=== PATIENT | female | born 1935 | race African-American/Black ===

== ENCOUNTER 2018-05-26 05:52 | Emergency (ER) | payer OTHER ==
[2018-05-26 06:12] VITALS: BP 149/74; PULSE 66; TEMP 98.6; BMI 37.7
[2018-05-26] MEDS ORDERED: CYCLOBENZAPRINE HCL 10 MG TABLET (FP) PO ONE (07:45)
[2018-05-26] MEDS ORDERED: ACETAMINOPHEN 1000 MG/100 ML VIAL (NON FORMULARY) IVPB ONE (07:45)
[2018-05-26] MEDS ORDERED: CYCLOBENZAPRINE HCL 10 MG TABLET (FP) ONE (07:54)
[2018-05-26] MEDS ORDERED: ACETAMINOPHEN INJECTION 100 ML IVPB ONE (07:54)
--- NOTE | 2018-05-26 08:12 | PDOC ---
History of Present Illness - General Chief Complaint: Back Pain Stated Complaint: BACK PAIN Time Seen by Provider: 05/26/18 07:26 History Source: Patient Exam Limitations: No Limitations - History of Present Illness Initial Comments: 05/26/18 08:07 82-year-old female with past medical history of left bundle branch block, spinal stenosis, sciatica, GI bleed, arthritis, congestive heart failure status post pacemaker, hypertension, diabetes, chronic kidney disease, COPD on home oxygen, obesity, angioedema, colon cancer currently in remission, bilateral knee replacements, cholecystectomy, splenectomy presents with acute on chronic back pain. The patient reports that she typically has pain along her lower back which she was recommended surgery. She declined surgery prior. At baseline, she is ambulatory with a cane or walker. States yesterday, reported that the pain was gradually worsening despite no trauma. States that this is the same quality of pain as prior. She reports it as a shooting down pain down the right lateral leg worsened with movement. Reports chronic right lower extremity weakness that is unchanged. Denies any new numbness. Past History - Past Medical History Allergies/Adverse Reactions: Allergies Allergy/AdvReac Type Severity Reaction Status Date / Time No Known Allergies Allergy Verified 05/26/18 06:12 Home Medications: Ambulatory Orders Acetaminophen [Arthritis Pain Relief] 650 mg PO DAILY 05/26/18 Acetaminophen [Tylenol -] 1,000 mg PO Q8H PRN #21 tablet 05/26/18 Amlodipine Besylate 10 mg PO DAILY 05/26/18 Aspirin [ASA -] 81 mg PO DAILY 05/26/18 Atenolol [Tenormin -] 25 mg PO DAILY 05/26/18 Atorvastatin Ca [Lipitor] 40 mg PO HS 05/26/18 Cyclobenzaprine HCl [Flexeril 10 mg] 10 mg PO Q8H PRN #21 tablet 05/26/18 Furosemide 20 mg PO DAILY 05/26/18 Gabapentin 100 mg PO DAILY 05/26/18 Glyburide 5 mg PO DAILY 05/26/18 Lidocaine 5% Patch [Lidoderm Patch -] 1 patch TP DAILY PRN #7 patch 05/26/18 Linaclotide [Linzess] 290 mcg PO DAILY 05/26/18 Montelukast Na [Singulair -] 10 mg PO HS 05/26/18 Multivit-Min/FA/Lycopen/Lutein [Centrum Silver Tablet] 1 each PO DAILY 05/26/18 Omeprazole 20 mg PO DAILY 05/26/18 Sildenafil Citrate [Sildenafil] 20 mg PO DAILY 05/26/18 Ventolin 0.042% (Half-Strength) - 90 mcg IN DAILY 05/26/18 Cardiac Disorders: Yes (complete atrioventricular block/LBBB/pacemaker) COPD: Yes DVT: Yes Diabetes: Yes Disorders: Yes (kidney lession,) Hypercholesterolemia: Yes Other medical history: angioedema, arthralgia,spinal stenosis,carpal tunnel, - Surgical History Abdominal Surgery: Yes (colon ca removed,) Cholecystectomy: Yes (spleen removed.) GI Surgery: Yes (bladder lift,) - Immunization History Immunization Up to Date: (Unknown) - Suicide/Smoking/Psychosocial Hx Smoking History: Never smoked Have you smoked in the past 12 months: No Information on smoking cessation initiated: No Hx Alcohol Use: No Drug/Substance Use Hx: No Review of Systems - Review of Systems Able to Perform ROS?: Yes Comments:: 05/26/18 08:09 GENERAL/CONSTITUTIONAL: [No fever or chills. No weakness. No weight change.] HEAD, EYES, EARS, NOSE AND THROAT: [No change in vision. No ear pain or discharge. No sore throat.] CARDIOVASCULAR: [No chest pain or shortness of breath.] RESPIRATORY: [No cough, wheezing, or hemoptysis.] GASTROINTESTINAL: [No nausea, vomiting, diarrhea or constipation. No rectal bleeding.] GENITOURINARY: [No dysuria, frequency, or change in urination.] MUSCULOSKELETAL: [No joint or muscle swelling or pain. No neck pain. +back pain SKIN AND BREASTS: [No rash or easy bruising.] NEUROLOGIC: [No headache, vertigo, loss of consciousness, or loss of sensation.] PSYCHIATRIC: [No depression or anxiety.] ENDOCRINE: [No increased thirst. No abnormal weight change.] HEMATOLOGIC/LYMPHATIC: [No anemia, easy bleeding, or history of blood clots.] ALLERGIC/IMMUNOLOGIC: [No hives or skin allergy. No latex allergy.] *Physical Exam - Vital Signs Last Vital Signs Temp Pulse Resp BP Pulse Ox 98.6 F 66 16 149/74 100 05/26/18 05:54 05/26/18 05:54 05/26/18 05:54 05/26/18 05:54 05/26/18 05:54 - Physical Exam Comments: 05/26/18 08:10 GENERAL: Awake, alert, and fully oriented, in no acute distress HEAD: No signs of trauma EYES: EOMI, sclera anicteric, conjunctiva clear ENT: Auricles normal inspection, hearing grossly normal, nares patent,Moist mucosa NECK: Normal ROM, supple, LUNGS: Breath sounds equal, clear to auscultation bilaterally. No wheezes, and no crackles HEART: Regular rate and rhythm, normal S1 and S2, no murmurs, rubs or gallops. + left sided chest pacemaker ABDOMEN: Soft, nontender, No guarding, no rebound. No masses BACK: + TTP ~L5-S1, no step offs, reproduces pain. SLR + at 30 degrees RLE. Sensation intact throughout. Chronic mild weakness of dorsiflexion of R 1st great toe. EXTREMITIES: Normal range of motion, no edema. No clubbing or cyanosis. No cords, erythema, or tenderness NEUROLOGICAL: Cranial nerves II through XII grossly intact. Normal speech, SKIN: Warm, Dry, normal turgor, no rashes or lesions noted. Moderate Sedation - Procedure Monitoring Vital Signs: Procedure Monitoring Vital Signs Temperature 98.6 F 05/26/18 05:54 Pulse Rate 66 05/26/18 05:54 Respiratory Rate 16 05/26/18 05:54 Blood Pressure 149/74 05/26/18 05:54 O2 Sat by Pulse Oximetry (%) 100 05/26/18 05:54 Heart Score/ECG Review #1 ECG reviewed & interpreted by me at: 07:10 05/26/18 08:11 NSR 63, left axis deviation, LBBB, QTC 450 msec, scarbossa negative ED Treatment Course - LABORATORY CBC & Chemistry Diagram: 05/26/18 08:07 05/26/18 08:07 Medical Decision Making - Medical Decision Making 05/26/18 08:11 Vital Signs Temp Pulse Resp BP Pulse Ox 98.6 F 66 16 149/74 100 05/26/18 05:54 05/26/18 05:54 05/26/18 05:54 05/26/18 05:54 05/26/18 05:54 I suspect that this is likely acute on chronic sciatica. The patient denies any urinary bowel incontinence. Reports worsening symptoms. Patient reports that she has some her symptoms one year ago which received IV pain medication which improved the pain. Will trial IV Tylenol and Flexeril and reassess. 05/26/18 09:47 CBC, BMP 05/26/18 08:07 05/26/18 08:07 CMP Sodium 139 mmol/L (136-145) 05/26/18 08:07 Potassium 4.6 mmol/L (3.5-5.1) 05/26/18 08:07 Chloride 108 mmol/L (98-107) H 05/26/18 08:07 Carbon Dioxide 25 mmol/L (21-32) 05/26/18 08:07 Anion Gap 6 MMOL/L (8-16) L 05/26/18 08:07 BUN 52 mg/dL (7-18) H 05/26/18 08:07 Creatinine 1.7 mg/dL (0.55-1.3) H 05/26/18 08:07 Creat Clearance w eGFR 28.85 (>60) 05/26/18 08:07 Random Glucose 123 mg/dL (74-106) H 05/26/18 08:07 Calcium 9.2 mg/dL (8.5-10.1) 05/26/18 08:07 Total Bilirubin 0.4 mg/dL (0.2-1) 05/26/18 08:07 AST 18 U/L (15-37) 05/26/18 08:07 ALT 24 U/L (13-61) 05/26/18 08:07 Alkaline Phosphatase 117 U/L (45-117) 05/26/18 08:07 Total Protein 7.2 g/dl (6.4-8.2) 05/26/18 08:07 Albumin 3.5 g/dl (3.4-5.0) 05/26/18 08:07 Pt's back pain improved signficantly with IV tylenol, flexeril and lidoderm patch. The patient is ambulatory without assistance. She would like to go home. She will go home with family. I discussed the physical exam findings, ancillary test results and final diagnoses with the patient. I answered all of the patient's questions. The patient was satisfied with the care received and felt comfortable with the discharge plan and treatment plan. The patient will call their primary care physician within 24 hours to arrange follow-up and will return to the Emergency Department with any new, persistant or worsening symptoms. *DC/Admit/Observation/Transfer Diagnosis at time of Disposition: Sciatica Qualifiers: Laterality: right Qualified Code(s): M54.31 - Sciatica, right side - Discharge Dispostion Disposition: HOME Condition at time of disposition: Improved Decision to Admit order: No - Prescriptions Prescriptions: Acetaminophen [Tylenol -] 1,000 mg PO Q8H PRN #21 tablet PRN Reason: Back Pain Cyclobenzaprine HCl [Flexeril 10 mg] 10 mg PO Q8H PRN #21 tablet PRN Reason: Back Pain Lidocaine 5% Patch [Lidoderm Patch -] 1 patch TP DAILY PRN #7 patch PRN Reason: Back Pain - Referrals Referrals: Cynthia Abbasi MD [Staff Physician] - - Patient Instructions Printed Discharge Instructions: DI for Sciatica Additional Instructions: You may take 1000 mg tylenol every 8 hous as needed for pain. For back spasm, take 10 mg flexeril every 8 hours as needed. You may apply a lidoderm patch on the lower back once a day as needed. Activity as tolerated. Follow up with your doctor. - Post Discharge Activity
[2018-05-26 08:39] LABS: BASO % 1.2 % (0-2.0); HEMATOCRIT 37.7 % (32.4-45.2); LYMPH % 24.2 % (8-40); MCH 30.5 pg (25.7-33.7); MCHC 34.6 g/dl (32.0-36.0); MEAN CELL VOLUME 88.1 fl (80-96); MEAN PLT VOLUME 8.9 fl (7.5-11.1); MONO % 12.6 % (3.8-10.2); PLATELET COUNT 225 K/MM3 (134-434); RBC 4.28 M/mm3 (3.60-5.2); RDW 14.4 % (11.6-15.6); WHITE BLOOD COUNT 8.4 K/mm3 (4.0-10.0)
[2018-05-26 09:06] LABS: ALBUMIN 3.5 g/dl (3.4-5.0); ALK PHOS 117 U/L (45-117); ANION GAP 6 MMOL/L (8-16); BILIRUBIN,TOTAL 0.4 mg/dL (0.2-1); BLOOD UREA NITROGEN 52 mg/dL (7-18); CALCIUM 9.2 mg/dL (8.5-10.1); CHLORIDE 108 mmol/L (98-107); CO2 25 mmol/L (21-32); CREATININE 1.7 mg/dL (0.55-1.3); GLUCOSE,RANDOM 123 mg/dL (74-106); POTASSIUM 4.6 mmol/L (3.5-5.1); SGOT/AST 18 U/L (15-37); SGPT/ALT 24 U/L (13-61); SODIUM 139 mmol/L (136-145); TOT PROT 7.2 g/dl (6.4-8.2)
[2018-05-26] MEDS ORDERED: LIDOCAINE 5% TOPICAL PATCH TP ONE (09:09)
[2018-05-26 09:12] LABS: INR 0.86 (0.83-1.09); PROTHROMBIN TIME (PATIENT) 10.1 SEC (9.7-13.0)
[2018-05-26] MEDS ORDERED: LIDOCAINE 5% TOPICAL PATCH ONE (09:21)
--- NOTE | 2018-05-26 10:27 | EKG ---
Test Reason : Blood Pressure : / mmHG Vent. Rate : 063 BPM Atrial Rate : 063 BPM P-R Int : 182 ms QRS Dur : 138 ms QT Int : 440 ms P-R-T Axes : 062 -40 128 degrees QTc Int : 450 ms NORMAL SINUS RHYTHM LEFT AXIS DEVIATION LEFT BUNDLE BRANCH BLOCK ABNORMAL ECG NO PREVIOUS ECGS AVAILABLE Confirmed by NARCISO JAMES, MATEO ([id number]) on 05/26/2018 10:27:16 AM Referred By: Confirmed By:MATEO STUART MD
[2018-05-26] MEDS ORDERED: LIDOCAINE PATCH REMOVAL MC SCH (22:00)
== END 2018-05-26 10:17 | disposition home or self-care (01) ==
LOC: JER 05:52
PROC: 3E033NZ Introduction of Analgesics, Hypnotics, Sedatives into Peripheral Vein, Percutaneous Approach (ICD-10-PCS; principal; 2018-05-26)
DX: M54.41 Lumbago with sciatica, right side (principal); I12.9 Hypertensive chronic kidney disease with stage 1 through stage 4 chronic kidney disease, or unspecified chronic kidney disease; E11.22 Type 2 diabetes mellitus with diabetic chronic kidney disease; N18.9 Chronic kidney disease, unspecified; Z79.84 Long term (current) use of oral hypoglycemic drugs; J44.9 Chronic obstructive pulmonary disease, unspecified; Z99.81 Dependence on supplemental oxygen; M10.9 Gout, unspecified; I44.7 Left bundle-branch block, unspecified; I44.30 Unspecified atrioventricular block; E66.9 Obesity, unspecified; Z68.37 Body mass index [BMI] 37.0-37.9, adult; Z96.653 Presence of artificial knee joint, bilateral; Z95.0 Presence of cardiac pacemaker; Z86.718 Personal history of other venous thrombosis and embolism
CPT/HCPCS: 36415; 80053; 85025; 85610; 85730; 93005; 93010; 96374; 99283-25; J0131

== ENCOUNTER 2018-12-15 09:25 | Emergency (ER) | payer OTHER ==
[2018-12-15 09:43] VITALS: BMI 34.9
--- NOTE | 2018-12-15 09:56 | PDOC ---
History of Present Illness - General Chief Complaint: Pain Stated Complaint: BACK PAIN Time Seen by Provider: 12/15/18 09:42 History Source: Patient Exam Limitations: No Limitations Past History - Travel Traveled outside of the country in the last 30 days: No Close contact w/someone who was outside of country & ill: No - Past Medical History Allergies/Adverse Reactions: Allergies Allergy/AdvReac Type Severity Reaction Status Date / Time No Known Allergies Allergy Verified 12/15/18 09:43 Home Medications: Ambulatory Orders Acetaminophen [Arthritis Pain Relief] 650 mg PO DAILY 05/26/18 Acetaminophen [Tylenol -] 1,000 mg PO Q8H PRN #21 tablet 05/26/18 Amlodipine Besylate 10 mg PO DAILY 05/26/18 Aspirin [ASA -] 81 mg PO DAILY 05/26/18 Atenolol [Tenormin -] 25 mg PO DAILY 05/26/18 Atorvastatin Ca [Lipitor] 40 mg PO HS 05/26/18 Cyclobenzaprine HCl [Flexeril 10 mg] 10 mg PO Q8H PRN #21 tablet 05/26/18 Furosemide 20 mg PO DAILY 05/26/18 Gabapentin 100 mg PO DAILY 05/26/18 Glyburide 10 mg PO AM 05/26/18 Linaclotide [Linzess] 290 mcg PO DAILY 05/26/18 Montelukast Na [Singulair -] 10 mg PO HS 05/26/18 Multivit-Min/FA/Lycopen/Lutein [Centrum Silver Tablet] 1 each PO DAILY 05/26/18 Omeprazole 20 mg PO DAILY 05/26/18 Sildenafil Citrate [Sildenafil] 20 mg PO DAILY 05/26/18 Ventolin 0.042% (Half-Strength) - 90 mcg IN DAILY 05/26/18 Acetaminophen [Tylenol -] 500 mg PO Q4H #30 tablet 12/15/18 Cyclobenzaprine HCl 5 mg PO HS #10 tablet 12/15/18 Glyburide 5 mg PO HS 12/15/18 predniSONE [Deltasone -] 20 mg PO DAILY #5 tablet 12/15/18 Cardiac Disorders: Yes (complete atrioventricular block/LBBB/pacemaker) COPD: Yes DVT: Yes Diabetes: Yes Disorders: Yes (kidney lession,) Hypercholesterolemia: Yes - Surgical History Abdominal Surgery: Yes (colon ca removed,) Cholecystectomy: Yes (spleen removed.) GI Surgery: Yes (bladder lift,) - Immunization History Immunization Up to Date: (Unknown) - Suicide/Smoking/Psychosocial Hx Smoking History: Never smoked Have you smoked in the past 12 months: No Information on smoking cessation initiated: No Hx Alcohol Use: No Drug/Substance Use Hx: No Review of Systems - Review of Systems Able to Perform ROS?: Yes Comments:: 12/15/18 16:55 CONSTITUTIONAL: Absent: fever, chills, diaphoresis, generalized weakness, malaise, loss of appetite GASTROINTESTINAL: Absent: abdominal pain, abdominal distension, nausea, vomiting, diarrhea, constipation, melena, hematochezia GENITOURINARY: Absent: dysuria, frequency, urgency, hesitancy, hematuria, flank pain, genital pain MUSCULOSKELETAL: Present: upper R back pain Absent: arthralgia, joint swelling SKIN: Absent: rash, itching, pallor NEUROLOGIC: Absent: headache, focal weakness or paresthesias, dizziness, unsteady gait, seizure, mental status changes, bladder or bowel incontinence PSYCHIATRIC: Absent: anxiety, depression, suicidal or homicidal ideation, hallucinations. Is the patient limited Urdu proficient: No *Physical Exam - Vital Signs Last Vital Signs Temp Pulse Resp BP Pulse Ox 97.4 F L 91 H 18 148/76 99 12/15/18 09:40 12/15/18 09:40 12/15/18 09:40 12/15/18 09:40 12/15/18 09:40 - Physical Exam Comments: 12/15/18 09:56 GENERAL: Well developed, well nourished. Awake and alert. No acute distress. HEENT: Normocephalic, atraumatic. PERRLA, EOMI. No conjunctival pallor. Sclera are non- icteric. Moist mucous membranes. Oropharynx is clear. NECK: Supple. Full ROM. No JVD. Carotid pulses 2+ and symmetric, without bruits. No thyromegaly. No lymphadenopathy. CARDIOVASCULAR: Regular rate and rhythm. No murmurs, rubs, or gallops. Distal pulses are 2+ and symmetric. PULMONARY: No evidence of respiratory distress. Lungs clear to auscultation bilaterally. No wheezing, rales or rhonchi. ABDOMINAL: Soft. Non-tender. Non-distended. No rebound or guarding. No organomegaly. Normoactive bowel sounds. MUSCULOSKELETAL TTP of the R trapzius/rhomboid. No midline tenderness. Pt at baseline strength in the upper extremites. Normal range of motion at all joints. No bony deformities or tenderness. No CVA tenderness. EXTREMITIES: No cyanosis. No clubbing. No edema. No calf tenderness. SKIN: Warm and dry. Normal capillary refill. No rashes. No jaundice. NEUROLOGICAL: Alert, awake, appropriate. Cranial nerves 2-12 intact. No deficits to light touch and temperature in face, upper extremities and lower extremities. No motor deficits in the in face, upper extremities and lower extremities. Normoreflexic in the upper and lower extremities. Normal speech. Toes are down- going bilaterally. Gait is normal without ataxia. PSYCHIATRIC: Cooperative. Good eye contact. Appropriate mood and affect. Medical Decision Making - Medical Decision Making 12/15/18 16:05 The patient is an 83-year-old female with past medical history of complete AV block with pacemaker, COPD, left nephrectomy, HLD, hypertension, hx of colon CA in remission (no chemo needed), presents to the ER today with right upper back pain. Patient states her pain started 2 days ago. She notes that the pain got worse when her right shoulder pain also got worse. She has history of a complete rotator cuff tear as well as the biceps tendon tear in the right arm. She states that she had been seen in urgent care for her shoulder pain and was diagnosed with a muscle spasm. She was given Flexeril which helped her symptoms. She is currently out of that medication. Denies fevers, chills, numbness and tingling to the upper extremities, lightheadedness, dizziness, saddle anesthesia and bladder bowel incontinence. A/P: Upper back pain On exam pt with point tenderness to the R upper trapezius/rhomboid. Pain with movement of R arm X-ray of upper back and lumbar spine without evidence of metastises or compression fracture Denies trauma Pt is neurologically intact with no focal findings Tylenol, prendisone and lidocaine patch given with relief of symptoms DC home with supportive therapy and ortho follow up I discussed the physical exam findings, ancillary test results and final diagnoses with the patient. I answered all of the patient's questions. The patient was satisfied with the care received and felt comfortable with the discharge plan and treatment plan. The Patient agrees to follow up with the primary care physician/specialist within 24-72 hours. Return precautions were given. *DC/Admit/Observation/Transfer Diagnosis at time of Disposition: Back pain Qualifiers: Back pain location: thoracic back pain Chronicity: acute Back pain laterality: right Qualified Code(s): M54.6 - Pain in thoracic spine - Discharge Dispostion Disposition: HOME Condition at time of disposition: Stable Decision to Admit order: No - Prescriptions Prescriptions: Acetaminophen [Tylenol -] 500 mg PO Q4H #30 tablet Cyclobenzaprine HCl 5 mg PO HS #10 tablet predniSONE [Deltasone -] 20 mg PO DAILY #5 tablet - Referrals Referrals: Hubert Perez [Primary Care Provider] - - Patient Instructions Printed Discharge Instructions: DI for Thoracic Back Pain Additional Instructions: You were evaluated for your back pain today Your x-rays did not show any broken bones and your urine was negative for infection You most likely have a muscle spasm Take the Flexeril at night before bed. Do not drink or drive after taking this medication as it may make you drowsy Take the Tylenol and Prednisone as directed Follow up with your primary care doctor this week Return to the ER for worsening pain, numbness or tingling in your groin, loss of bladder/bowel function or if you have any changes in your symptoms - Post Discharge Activity Forms/Work/School Notes: Back to Work
[2018-12-15] MEDS ORDERED: ACETAMINOPHEN 325 MG TABLET (FP) PO ONE (10:20)
[2018-12-15] MEDS ORDERED: CYCLOBENZAPRINE HCL 10 MG TABLET (FP) PO ONE (10:20)
[2018-12-15] MEDS ORDERED: predniSONE 20 MG TABLET (UD) PO ONE (10:21)
[2018-12-15] MEDS ORDERED: CYCLOBENZAPRINE HCL 10 MG TABLET (FP) ONE (11:04)
[2018-12-15] MEDS ORDERED: predniSONE 20 MG TABLET (UD) ONE (11:04)
[2018-12-15] MEDS ORDERED: ACETAMINOPHEN 325 MG TABLET (FP) ONE (11:04)
[2018-12-15 11:28] LABS: EPI CELLS 7.4 /HPF (0-5/HPF); HYALINE CASTS 3 /lpf (0-8); URINE APPEARANCE CLEAR; URINE BILIRUBIN NEGATIVE (NEGATIVE); URINE COLOR YELLOW; URINE GLUCOSE (UA) NEGATIVE (NEGATIVE); URINE KETONE NEGATIVE (NEGATIVE); URINE LEUK ESTERASE TRACE (NEGATIVE); URINE NITRITE NEGATIVE (NEGATIVE); URINE PROTEIN 3+ (NEGATIVE); URINE RBC 1 /hpf (0-4); URINE UROBILINOGEN 0.2 mg/dL (0.2-1.0); URINE WBC 7 /hpf (0-5)
[2018-12-15 13:52] VITALS: BP 159/81; PULSE 61; TEMP 97.5
== END 2018-12-15 13:53 | disposition home or self-care (01) ==
LOC: JER 09:25
DX: M54.6 Pain in thoracic spine (principal); E11.9 Type 2 diabetes mellitus without complications; Z79.84 Long term (current) use of oral hypoglycemic drugs; E78.00 Pure hypercholesterolemia, unspecified; J44.9 Chronic obstructive pulmonary disease, unspecified; I44.7 Left bundle-branch block, unspecified; I44.2 Atrioventricular block, complete; Z86.718 Personal history of other venous thrombosis and embolism; Z85.038 Personal history of other malignant neoplasm of large intestine; Z90.49 Acquired absence of other specified parts of digestive tract; Z90.81 Acquired absence of spleen; Z95.0 Presence of cardiac pacemaker
CPT/HCPCS: 72070-TC-FY; 72100-TC-FY; 81003; 87086; 99283-25

== ENCOUNTER 2020-10-17 09:33 | Inpatient (IN) | payer OTHER ==
[2020-10-17 11:57] LABS: BASO % 1.3 % (0-2.0); EOS % 2.9 % (0-4.5); HEMATOCRIT 36.4 % (32.4-45.2); LYMPH % 30.6 % (8-40); MCH 28.7 pg (25.7-33.7); MCHC 33.1 g/dl (32.0-36.0); MEAN CELL VOLUME 86.7 fl (80-96); MEAN PLT VOLUME 8.4 fl (7.5-11.1); MONO % 9.5 % (3.8-10.2); NEUT % 55.7 % (42.8-82.8); PLATELET COUNT 249 10^3/uL (134-434); RDW 15.4 % (11.6-15.6); WHITE BLOOD COUNT 5.6 K/mm3 (4.0-10.0)
[2020-10-17 12:30] LABS: INR 0.79 (0.83-1.09); PROTHROMBIN TIME (PATIENT) 9.6 SEC (9.7-13.0)
[2020-10-17 12:32] LABS: ACTIVATED PTT 20.8 SECONDS (25.2-36.5)
[2020-10-17 12:40] LABS: CHLORIDE 110 mmol/L (98-107); SODIUM 137 mmol/L (136-145)
[2020-10-17 12:42] LABS: CALCIUM 8.9 mg/dL (8.5-10.1)
[2020-10-17 12:43] LABS: ALBUMIN 3.6 g/dl (3.4-5.0); BLOOD UREA NITROGEN 63.1 mg/dL (7-18); CO2 18 mmol/L (21-32); GLUCOSE,RANDOM 64 mg/dL (74-106)
[2020-10-17 12:46] LABS: CREATININE 2.2 mg/dL (0.55-1.3); SGOT/AST 19 U/L (15-37); SGPT/ALT 34 U/L (13-61)
[2020-10-17 12:48] LABS: BILIRUBIN,TOTAL 0.3 mg/dL (0.2-1); TOT PROT 7.3 g/dl (6.4-8.2)
[2020-10-17 12:49] LABS: ALK PHOS 98 U/L (45-117)
[2020-10-17 12:52] LABS: ANION GAP 8 MMOL/L (8-16)
[2020-10-17] MEDS ORDERED: CALCIUM GLUCONATE 10% - 1,000 MG/10 ML VIAL IVPB ONE (13:29)
[2020-10-17] MEDS ORDERED: DEXTROSE 50%-WATER - 25 GM/50 ML VIAL IVPUSH ONE (13:29)
[2020-10-17] MEDS ORDERED: INSULIN REGULAR HUMAN 100 UNITS/ML *VIAL IVPUSH ONE (13:30)
[2020-10-17] MEDS ORDERED: CALCIUM GLUCONATE 10% - 1,000 MG/10 ML VIAL ONE (13:38)
[2020-10-17] MEDS ORDERED: DEXTROSE 50%-WATER - 25 GM/50 ML VIAL ONE (13:38)
[2020-10-17] MEDS ORDERED: INSULIN REGULAR HUMAN 100 UNITS/ML *VIAL ONE (13:40)
[2020-10-17] MEDS ORDERED: FUROSEMIDE 20 MG TABLET (FP) PO SCH (15:45)
[2020-10-17] MEDS ORDERED: SODIUM ZIRCONIUM CYCLOSILICATE (LOKELMA) 5 GM PACKET PO ONE (17:25)
[2020-10-17] MEDS ORDERED: FUROSEMIDE 40 MG TABLET (FP) ONE (17:31)
[2020-10-17] MEDS ORDERED: SODIUM ZIRCONIUM CYCLOSILICATE (LOKELMA) 5 GM PACKET ONE (17:31)
[2020-10-17] MEDS ORDERED: FAMOTIDINE 10 MG TABLET ONE (17:31)
[2020-10-17] MEDS ORDERED: CARVEDILOL 12.5 MG TABLET (FP) ONE (17:32)
[2020-10-17] MEDS: CARVEDILOL 25 MG TABLET (FP) PO SCH ×2 (17:40→22:22)
[2020-10-17] MEDS: FAMOTIDINE 10 MG TABLET PO SCH (17:40)
[2020-10-17] MEDS: INSULIN SLIDING SCALE (NOVOLOG) 1 VIAL SQ SCH ×2 (17:41→22:22)
[2020-10-17 18:10] LABS: CALCIUM 9.2 mg/dL (8.5-10.1)
[2020-10-17 18:11] LABS: BLOOD UREA NITROGEN 60.6 mg/dL (7-18); MAGNESIUM 2.4 mg/dL (1.8-2.4)
[2020-10-17 18:14] LABS: CREATININE 2.1 mg/dL (0.55-1.3); PHOSPHOROUS 4.4 mg/dL (2.5-4.9)
[2020-10-17] MEDS: HEPARIN NA (PORCINE) 5,000 UNITS/ML 1ML VIAL SQ SCH (22:22)
[2020-10-17 23:01] VITALS: BMI 33.3
[2020-10-18] MEDS: INSULIN SLIDING SCALE (NOVOLOG) 1 VIAL SQ SCH ×4 (07:04→21:48)
[2020-10-18] MEDS: HEPARIN NA (PORCINE) 5,000 UNITS/ML 1ML VIAL SQ SCH ×3 (07:05→21:46)
[2020-10-18 09:22] LABS: INR 0.86 (0.83-1.09); PROTHROMBIN TIME (PATIENT) 10.6 SEC (9.7-13.0)
[2020-10-18 09:23] LABS: BASO % 1.3 % (0-2.0); EOS % 4.1 % (0-4.5); HEMATOCRIT 36.5 % (32.4-45.2); HEMOGLOBIN 11.9 GM/dL (10.7-15.3); LYMPH % 29.7 % (8-40); MCH 28.4 pg (25.7-33.7); MCHC 32.6 g/dl (32.0-36.0); MEAN CELL VOLUME 87.1 fl (80-96); MEAN PLT VOLUME 9.2 fl (7.5-11.1); MONO % 11.2 % (3.8-10.2); NEUT % 53.7 % (42.8-82.8); PLATELET COUNT 239 10^3/uL (134-434); RBC 4.19 M/mm3 (3.60-5.2); RDW 15.4 % (11.6-15.6); WHITE BLOOD COUNT 5.4 K/mm3 (4.0-10.0)
[2020-10-18 09:25] LABS: ACTIVATED PTT 31.5 SECONDS (25.2-36.5)
[2020-10-18 09:45] LABS: BLOOD UREA NITROGEN 56.6 mg/dL (7-18); CALCIUM 9.5 mg/dL (8.5-10.1); MAGNESIUM 2.3 mg/dL (1.8-2.4)
[2020-10-18] MEDS: FAMOTIDINE 10 MG TABLET PO SCH (09:45)
[2020-10-18] MEDS: CARVEDILOL 25 MG TABLET (FP) PO SCH ×2 (09:45→21:46)
[2020-10-18 09:46] LABS: CREATININE 2.1 mg/dL (0.55-1.3)
[2020-10-18 09:48] LABS: PHOSPHOROUS 4.3 mg/dL (2.5-4.9)
[2020-10-18 10:29] LABS: ANISOCYTOSIS 0; HELMET CELLS 0; HOWELL-JOLLY BODIES 0; MACROCYTOSIS 0; OVALOCYTE 0; PLATELET ESTIMATE NORMAL; ROULEAU 0; SICKELED CELLS 0; TARGET CELLS 0; TEAR DROP CELLS 0; TOXIC GRANULATION 0
[2020-10-18 20:48] LABS: EPI CELLS 35 /uL (0-25.1); HYALINE CASTS 1 /uL (0-3.1); URINE APPEARANCE CLEAR; URINE BACTERIA 1148 /uL (0-1359); URINE BILIRUBIN NEGATIVE (NEGATIVE); URINE COLOR YELLOW; URINE GLUCOSE (UA) NEGATIVE (NEGATIVE); URINE KETONE NEGATIVE (NEGATIVE); URINE LEUK ESTERASE 1+ (NEGATIVE); URINE NITRITE NEGATIVE (NEGATIVE); URINE PROTEIN 3+ (NEGATIVE); URINE RBC 5 /uL (0-23.9); URINE UROBILINOGEN 0.2 mg/dL (0.2-1.0); URINE WBC 61 /uL (0-25.8)
[2020-10-19] MEDS: INSULIN SLIDING SCALE (NOVOLOG) 1 VIAL SQ SCH ×3 (07:21→17:16)
[2020-10-19] MEDS: HEPARIN NA (PORCINE) 5,000 UNITS/ML 1ML VIAL SQ SCH ×2 (07:32→13:16)
[2020-10-19 07:55] LABS: BASO % 0.4 % (0-2.0); EOS % 3.7 % (0-4.5); HEMATOCRIT 35.2 % (32.4-45.2); HEMOGLOBIN 11.8 GM/dL (10.7-15.3); LYMPH % 33.2 % (8-40); MCH 28.9 pg (25.7-33.7); MCHC 33.4 g/dl (32.0-36.0); MEAN CELL VOLUME 86.6 fl (80-96); MEAN PLT VOLUME 8.9 fl (7.5-11.1); MONO % 10.5 % (3.8-10.2); NEUT % 52.2 % (42.8-82.8); PLATELET COUNT 223 10^3/uL (134-434); RBC 4.07 M/mm3 (3.60-5.2); RDW 15.2 % (11.6-15.6); WHITE BLOOD COUNT 5.9 K/mm3 (4.0-10.0)
[2020-10-19 08:18] LABS: ALBUMIN 3.5 g/dl (3.4-5.0); CALCIUM 9.1 mg/dL (8.5-10.1); MAGNESIUM 2.4 mg/dL (1.8-2.4)
[2020-10-19 08:22] LABS: CREATININE 2.2 mg/dL (0.55-1.3)
[2020-10-19 08:23] LABS: BILIRUBIN,TOTAL 0.6 mg/dL (0.2-1); PHOSPHOROUS 4.8 mg/dL (2.5-4.9); TOT PROT 6.8 g/dl (6.4-8.2)
[2020-10-19 09:47] VITALS: PULSE 62
[2020-10-19] MEDS: FAMOTIDINE 10 MG TABLET PO SCH (09:57)
[2020-10-19] MEDS: CARVEDILOL 25 MG TABLET (FP) PO SCH (09:57)
[2020-10-19] MEDS ORDERED: SODIUM ZIRCONIUM CYCLOSILICATE (LOKELMA) 5 GM PACKET PO ONE (10:07)
[2020-10-19] MEDS ORDERED: SODIUM CHLORIDE 1,000 ML IV SCH (10:15)
[2020-10-19] MEDS ORDERED: SODIUM CHLORIDE 0.45% 1,000 ML IV SCH (12:00)
[2020-10-19 14:51] VITALS: BP 153/73; TEMP 97.5
== END 2020-10-19 20:00 | disposition home or self-care (01) | DRG 641 ==
LOC: JER 09:33 → JERBED 14:22 → J4W 21:56
PROVIDERS: ATTEND Internal Medicine
DX: E87.5 Hyperkalemia (principal); N17.9 Acute kidney failure, unspecified; I13.0 Hypertensive heart and chronic kidney disease with heart failure and stage 1 through stage 4 chronic kidney disease, or unspecified chronic kidney disease; J44.9 Chronic obstructive pulmonary disease, unspecified; I44.7 Left bundle-branch block, unspecified; E11.22 Type 2 diabetes mellitus with diabetic chronic kidney disease; N18.9 Chronic kidney disease, unspecified; I50.9 Heart failure, unspecified; E78.5 Hyperlipidemia, unspecified; F45.8 Other somatoform disorders; Z79.84 Long term (current) use of oral hypoglycemic drugs
CPT/HCPCS: 36415; 71045-TC-FY; 80048; 80053; 81003; 82550; 82570; 82962; 83735; 84100; 84300; 84484; 85025; 85610; 85730; 86769; 93005; 93010; 97116-GP; 97161-GP; 99285-25; C9803; J1644; U0003; U0005

== ENCOUNTER 2021-01-28 22:35 | Inpatient (IN) | payer OTHER ==
[2021-01-28 23:04] VITALS: TEMP 97.7; BMI 36.3
[2021-01-28] MEDS ORDERED: ACETAMINOPHEN 1000 MG/100 ML VIAL IVPB ONE (23:29)
[2021-01-28] MEDS ORDERED: METOCLOPRAMIDE HCL INJECTION 10 MG/2 ML VIAL IVPUSH ONE (23:29)
[2021-01-29] MEDS ORDERED: METOCLOPRAMIDE HCL INJECTION 10 MG/2 ML VIAL ONE (00:23)
[2021-01-29 00:56] LABS: BASO % 0.8 % (0-2.0); EOS % 2.1 % (0-4.5); HEMATOCRIT 37.3 % (32.4-45.2); HEMOGLOBIN 12.6 GM/dL (10.7-15.3); MCH 29.2 pg (25.7-33.7); MCHC 33.7 g/dl (32.0-36.0); MEAN CELL VOLUME 86.5 fl (80-96); MEAN PLT VOLUME 8.9 fl (7.5-11.1); MONO % 12.5 % (3.8-10.2); NEUT % 52.6 % (42.8-82.8); PLATELET COUNT 230 10^3/uL (134-434); RBC 4.31 M/mm3 (3.60-5.2); RDW 14.1 % (11.6-15.6); WHITE BLOOD COUNT 6.3 K/mm3 (4.0-10.0)
[2021-01-29 01:12] LABS: BLOOD UREA NITROGEN 38.2 mg/dL (7-18)
[2021-01-29 01:15] LABS: CREATININE 2.2 mg/dL (0.55-1.3)
[2021-01-29 01:17] LABS: BILIRUBIN,TOTAL 0.5 mg/dL (0.2-1)
[2021-01-29 04:10] LABS: EPI CELLS 13 /uL (0-25.1); HYALINE CASTS 0 /uL (0-3.1); PH,URINE 6.5 (5.0-8.0); URINE APPEARANCE CLEAR; URINE BACTERIA 51 /uL (0-1359); URINE BILIRUBIN NEGATIVE (NEGATIVE); URINE COLOR YELLOW; URINE GLUCOSE (UA) NEGATIVE (NEGATIVE); URINE KETONE NEGATIVE (NEGATIVE); URINE LEUK ESTERASE NEGATIVE (NEGATIVE); URINE NITRITE NEGATIVE (NEGATIVE); URINE PROTEIN 3+ (NEGATIVE); URINE RBC 5 /uL (0-23.9); URINE UROBILINOGEN 0.2 mg/dL (0.2-1.0); URINE WBC 13 /uL (0-25.8)
[2021-01-29] MEDS ORDERED: GABAPENTIN 100 MG CAPSULE PO SCH (06:00)
[2021-01-29] MEDS ORDERED: INSULIN SLIDING SCALE (NOVOLOG) 1 VIAL SQ SCH (07:00)
[2021-01-29 07:44] VITALS: BP 140/89; PULSE 79
[2021-01-29] MEDS ORDERED: GABAPENTIN 100 MG CAPSULE ONE (08:01)
[2021-01-29] MEDS ORDERED: amLODIPine BESYLATE 5 MG TABLET (FP) PO SCH (10:00)
[2021-01-29] MEDS ORDERED: CARVEDILOL 25 MG TABLET (FP) PO SCH (10:00)
[2021-01-29] MEDS ORDERED: HEPARIN NA (PORCINE) 5,000 UNITS/ML 1ML VIAL SQ SCH (10:00)
[2021-01-29] MEDS ORDERED: ASPIRIN COATED 81 MG TABLET.EC PO SCH (10:00)
[2021-01-29] MEDS ORDERED: ATORVASTATIN CA 40 MG TABLET (FP) PO SCH (22:00)
== END 2021-01-29 10:30 | disposition left against medical advice (07) | DRG 69 ==
LOC: JER 22:35 → JERBED 23:55 → OBSVTOIN 01-29 05:16
PROVIDERS: ADMIT Internal Medicine; ATTEND Nurse Practitioner Acute Care
DX: G45.9 Transient cerebral ischemic attack, unspecified (principal); G45.3 Amaurosis fugax; N17.9 Acute kidney failure, unspecified; E78.5 Hyperlipidemia, unspecified; Z79.84 Long term (current) use of oral hypoglycemic drugs; Z95.0 Presence of cardiac pacemaker; J44.9 Chronic obstructive pulmonary disease, unspecified; E11.42 Type 2 diabetes mellitus with diabetic polyneuropathy; E66.9 Obesity, unspecified; E11.22 Type 2 diabetes mellitus with diabetic chronic kidney disease; I12.9 Hypertensive chronic kidney disease with stage 1 through stage 4 chronic kidney disease, or unspecified chronic kidney disease; N18.9 Chronic kidney disease, unspecified; Z68.36 Body mass index [BMI] 36.0-36.9, adult; I44.7 Left bundle-branch block, unspecified; Z53.29 Procedure and treatment not carried out because of patient's decision for other reasons
CPT/HCPCS: 36415; 70450-TC; 71045-TC-FY; 80053; 80061; 81003; 83036; 84443; 85025; 87086; 93005; 93010; 93880-TC; 93971-TC; 99285-25; C9803; G0378; J0131; U0003; U0005

== ENCOUNTER 2021-03-21 12:26 | Observation (INO) | payer OTHER ==
[2021-03-21 14:39] LABS: BASO % 1.4 % (0-2.0); HEMATOCRIT 33.7 % (32.4-45.2); HEMOGLOBIN 11.4 GM/dL (10.7-15.3); LYMPH % 42.8 % (8-40); MCH 28.9 pg (25.7-33.7); MCHC 33.9 g/dl (32.0-36.0); MEAN CELL VOLUME 85.3 fl (80-96); MEAN PLT VOLUME 9.3 fl (7.5-11.1); MONO % 9.6 % (3.8-10.2); NEUT % 44.2 % (42.8-82.8); PLATELET COUNT 203 10^3/uL (134-434); RBC 3.95 M/mm3 (3.60-5.2); RDW 14.5 % (11.6-15.6); WHITE BLOOD COUNT 4.4 K/mm3 (4.0-10.0)
[2021-03-21 14:56] LABS: BLOOD UREA NITROGEN 45.1 mg/dL (7-18)
[2021-03-21 14:57] LABS: ALBUMIN 3.1 g/dl (3.4-5.0)
[2021-03-21 14:59] LABS: CREATININE 2.2 mg/dL (0.55-1.3)
[2021-03-21 15:01] LABS: BILIRUBIN,TOTAL 0.4 mg/dL (0.2-1); TOT PROT 6.4 g/dl (6.4-8.2)
[2021-03-21] MEDS ORDERED: PHENYTOIN NA EXTENDED 100 MG CAPSULE (FP) ONE (18:39)
[2021-03-21] MEDS ORDERED: amLODIPine BESYLATE 5 MG TABLET (FP) ONE (18:39)
[2021-03-21] MEDS ORDERED: HEPARIN NA (PORCINE) 5,000 UNITS/ML 1ML VIAL ONE (18:40)
[2021-03-21] MEDS: amLODIPine BESYLATE 10 MG TABLET (FP) PO SCH (18:50)
[2021-03-21] MEDS: HEPARIN NA (PORCINE) 5,000 UNITS/ML 1ML VIAL SQ SCH (18:50)
[2021-03-21] MEDS: GABAPENTIN 100 MG CAPSULE PO SCH ×2 (18:50→22:48)
[2021-03-21] MEDS: CARVEDILOL 25 MG TABLET (FP) PO SCH (22:15)
[2021-03-21] MEDS: ATORVASTATIN CA 40 MG TABLET (FP) PO SCH (22:15)
[2021-03-21] MEDS: INSULIN SLIDING SCALE (NOVOLOG) 1 VIAL SQ SCH (22:19)
[2021-03-22 02:27] VITALS: BMI 31.4
[2021-03-22] MEDS: HEPARIN NA (PORCINE) 5,000 UNITS/ML 1ML VIAL SQ SCH ×3 (02:31→17:11)
[2021-03-22] MEDS: GABAPENTIN 100 MG CAPSULE PO SCH ×4 (06:28→23:13)
[2021-03-22] MEDS: INSULIN SLIDING SCALE (NOVOLOG) 1 VIAL SQ SCH ×4 (06:37→21:28)
[2021-03-22 07:06] LABS: BASO % 1.4 % (0-2.0); HEMATOCRIT 34.5 % (32.4-45.2); HEMOGLOBIN 11.5 GM/dL (10.7-15.3); LYMPH % 41.8 % (8-40); MCH 28.9 pg (25.7-33.7); MCHC 33.4 g/dl (32.0-36.0); MEAN CELL VOLUME 86.5 fl (80-96); MEAN PLT VOLUME 9.1 fl (7.5-11.1); MONO % 13.1 % (3.8-10.2); NEUT % 39.7 % (42.8-82.8); PLATELET COUNT 194 10^3/uL (134-434); RBC 3.99 M/mm3 (3.60-5.2); RDW 14.4 % (11.6-15.6); WHITE BLOOD COUNT 4.8 K/mm3 (4.0-10.0)
[2021-03-22 07:32] LABS: ALBUMIN 2.8 g/dl (3.4-5.0); BLOOD UREA NITROGEN 42.5 mg/dL (7-18); CALCIUM 8.7 mg/dL (8.5-10.1); MAGNESIUM 2.2 mg/dL (1.8-2.4)
[2021-03-22 07:35] LABS: CREATININE 2.4 mg/dL (0.55-1.3); PHOSPHOROUS 4.1 mg/dL (2.5-4.9)
[2021-03-22 07:37] LABS: BILIRUBIN,TOTAL 0.6 mg/dL (0.2-1); TOT PROT 6.1 g/dl (6.4-8.2)
[2021-03-22] MEDS ORDERED: INSULIN (NOVOLOG) ASPART 100 UNITS/ML 10ML VIAL ONE (09:16)
[2021-03-22] MEDS: amLODIPine BESYLATE 10 MG TABLET (FP) PO SCH (09:54)
[2021-03-22] MEDS: CARVEDILOL 25 MG TABLET (FP) PO SCH ×2 (09:54→21:28)
[2021-03-22] MEDS: ASPIRIN COATED 81 MG TABLET.EC PO SCH (09:55)
[2021-03-22 18:04] LABS: EPI CELLS >36 /uL (0-25.1); HYALINE CASTS 1 /uL (0-3.1); PH,URINE 5.5 (5.0-8.0); URINE APPEARANCE CLOUDY; URINE BACTERIA 2071 /uL (0-1359); URINE BILIRUBIN NEGATIVE (NEGATIVE); URINE COLOR YELLOW; URINE GLUCOSE (UA) NEGATIVE (NEGATIVE); URINE KETONE NEGATIVE (NEGATIVE); URINE LEUK ESTERASE TRACE (NEGATIVE); URINE NITRITE NEGATIVE (NEGATIVE); URINE PROTEIN 4+ (NEGATIVE); URINE RBC 3 /uL (0-23.9); URINE UROBILINOGEN 0.2 mg/dL (0.2-1.0); URINE WBC 56 /uL (0-25.8)
[2021-03-22] MEDS: ATORVASTATIN CA 40 MG TABLET (FP) PO SCH (21:28)
[2021-03-23] MEDS: HEPARIN NA (PORCINE) 5,000 UNITS/ML 1ML VIAL SQ SCH ×3 (01:45→19:35)
[2021-03-23 05:14] VITALS: TEMP 98.1
[2021-03-23] MEDS: GABAPENTIN 100 MG CAPSULE PO SCH ×3 (05:49→17:37)
[2021-03-23] MEDS: INSULIN SLIDING SCALE (NOVOLOG) 1 VIAL SQ SCH ×3 (06:05→15:49)
[2021-03-23 07:04] LABS: BASO % 1.3 % (0-2.0); EOS % 3.6 % (0-4.5); HEMATOCRIT 33.2 % (32.4-45.2); HEMOGLOBIN 11.2 GM/dL (10.7-15.3); LYMPH % 45.2 % (8-40); MCH 28.8 pg (25.7-33.7); MCHC 33.7 g/dl (32.0-36.0); MEAN CELL VOLUME 85.6 fl (80-96); MEAN PLT VOLUME 9.2 fl (7.5-11.1); NEUT % 36.9 % (42.8-82.8); PLATELET COUNT 182 10^3/uL (134-434); RBC 3.88 M/mm3 (3.60-5.2); RDW 14.4 % (11.6-15.6); WHITE BLOOD COUNT 4.6 K/mm3 (4.0-10.0)
[2021-03-23 07:19] LABS: ALBUMIN 2.7 g/dl (3.4-5.0); BLOOD UREA NITROGEN 46.6 mg/dL (7-18); MAGNESIUM 2.3 mg/dL (1.8-2.4)
[2021-03-23 07:22] LABS: CREATININE 2.2 mg/dL (0.55-1.3); PHOSPHOROUS 4.4 mg/dL (2.5-4.9)
[2021-03-23 07:24] LABS: BILIRUBIN,TOTAL 0.4 mg/dL (0.2-1); TOT PROT 5.6 g/dl (6.4-8.2)
[2021-03-23] MEDS ORDERED: SODIUM CHLORIDE 1,000 ML IV SCH (08:30)
[2021-03-23 08:58] VITALS: BP 140/74; PULSE 61
[2021-03-23] MEDS: ASPIRIN COATED 81 MG TABLET.EC PO SCH (11:08)
[2021-03-23] MEDS: amLODIPine BESYLATE 10 MG TABLET (FP) PO SCH (11:08)
[2021-03-23] MEDS: CARVEDILOL 25 MG TABLET (FP) PO SCH (11:10)
[2021-03-23] MEDS ORDERED: REGADENOSON 0.4 MG/5 ML PRE-FILLED SYRINGE IVPUSH ONE ×2 (14:01→14:45)
== END 2021-03-23 20:31 | disposition home or self-care (01) ==
LOC: JER 12:26 → JERBED 15:55 → UNDOADMOB 15:55 → OBSVTOIN 17:34 → INTOOBSV 17:34 → JERBED 18:39 → J4W 20:25 → JERBED 20:25
PROVIDERS: ADMIT Internal Medicine; ATTEND Internal Medicine
PROC: 3E033GC Introduction of Other Therapeutic Substance into Peripheral Vein, Percutaneous Approach (ICD-10-PCS; principal; 2021-03-21)
PROC: 3E0337Z Introduction of Electrolytic and Water Balance Substance into Peripheral Vein, Percutaneous Approach (ICD-10-PCS; 2021-03-21)
DX: I13.10 Hypertensive heart and chronic kidney disease without heart failure, with stage 1 through stage 4 chronic kidney disease, or unspecified chronic kidney disease (principal); Z95.0 Presence of cardiac pacemaker; I24.9 Acute ischemic heart disease, unspecified; N17.9 Acute kidney failure, unspecified; I44.7 Left bundle-branch block, unspecified; E66.9 Obesity, unspecified; Z68.31 Body mass index [BMI] 31.0-31.9, adult; Z85.048 Personal history of other malignant neoplasm of rectum, rectosigmoid junction, and anus; I49.5 Sick sinus syndrome; E11.22 Type 2 diabetes mellitus with diabetic chronic kidney disease; N18.9 Chronic kidney disease, unspecified; R07.9 Chest pain, unspecified; R79.89 Other specified abnormal findings of blood chemistry
CPT/HCPCS: 36415; 71045-TC-FY; 78452-TC; 80053; 81003; 82550; 82962; 83735; 84100; 84443; 84484; 85025; 93005; 93010; 93017; 93306-TC; 96361; 96374; 99285-25; A9502; C9803; G0378; J1644; J2785; U0003; U0005

== ENCOUNTER 2021-09-25 14:43 | Inpatient (IN) | payer OTHER ==
[2021-09-25] MEDS ORDERED: ACETAMINOPHEN 1000 MG/100 ML BAG IVPB ONE (15:28)
[2021-09-25] MEDS ORDERED: ACETAMINOPHEN INJECTION 100 ML IVPB ONE (15:31)
[2021-09-25 16:11] LABS: BASO % 2.2 % (0-2.0); EOS % 1.9 % (0-4.5); HEMOGLOBIN 11.5 GM/dL (10.7-15.3); LYMPH % 32.5 % (8-40); MCH 29.4 pg (25.7-33.7); MCHC 33.9 g/dl (32.0-36.0); MEAN CELL VOLUME 86.9 fl (80-96); MEAN PLT VOLUME 8.5 fl (7.5-11.1); MONO % 9.5 % (3.8-10.2); NEUT % 53.9 % (42.8-82.8); PLATELET COUNT 217 10^3/uL (134-434); RBC 3.91 M/mm3 (3.60-5.2); RDW 15.1 % (11.6-15.6); WHITE BLOOD COUNT 4.4 K/mm3 (4.0-10.0)
[2021-09-25 16:37] LABS: EPI CELLS 12 /uL (0-25.1); HYALINE CASTS 0 /uL (0-3.1); URINE APPEARANCE CLEAR; URINE BACTERIA 224 /uL (0-1359); URINE BILIRUBIN NEGATIVE (NEGATIVE); URINE COLOR YELLOW; URINE GLUCOSE (UA) NEGATIVE (NEGATIVE); URINE KETONE NEGATIVE (NEGATIVE); URINE LEUK ESTERASE NEGATIVE (NEGATIVE); URINE NITRITE NEGATIVE (NEGATIVE); URINE PROTEIN 3+ (NEGATIVE); URINE RBC 2 /uL (0-23.9); URINE UROBILINOGEN 0.2 mg/dL (0.2-1.0); URINE WBC 11 /uL (0-25.8)
[2021-09-25 16:45] LABS: CHLORIDE 108 mmol/L (98-107); SODIUM 139 mmol/L (136-145)
[2021-09-25 16:49] LABS: ALBUMIN 3.6 g/dl (3.4-5.0); ANION GAP 8 MMOL/L (8-16); BLOOD UREA NITROGEN 56.2 mg/dL (7-18); CALCIUM 9.3 mg/dL (8.5-10.1); CO2 23 mmol/L (21-32); GLUCOSE,RANDOM 137 mg/dL (74-106); LIPASE 236 U/L (73-393)
[2021-09-25 16:50] LABS: MAGNESIUM 2.2 mg/dL (1.8-2.4)
[2021-09-25 16:52] LABS: CREATININE 2.7 mg/dL (0.55-1.3); SGOT/AST 18 U/L (15-37); SGPT/ALT 28 U/L (13-61)
[2021-09-25 16:54] LABS: BILIRUBIN,TOTAL 0.6 mg/dL (0.2-1); TOT PROT 7.1 g/dl (6.4-8.2)
[2021-09-25 16:55] LABS: ALK PHOS 87 U/L (45-117)
[2021-09-25] MEDS ORDERED: SODIUM CHLORIDE 0.9% 500 ML INFUS.BAG IV ONE (17:11)
[2021-09-25 17:36] LABS: INR 0.94 (0.83-1.09); PROTHROMBIN TIME (PATIENT) 10.8 SEC (9.7-13.0)
[2021-09-25 17:39] LABS: ACTIVATED PTT 31.4 SECONDS (25.2-36.5)
[2021-09-25 18:44] LABS: CALCIUM 9.5 mg/dL (8.5-10.1)
[2021-09-25 18:46] LABS: BLOOD UREA NITROGEN 57.9 mg/dL (7-18)
[2021-09-25 18:48] LABS: CREATININE 2.7 mg/dL (0.55-1.3)
[2021-09-25] MEDS ORDERED: CARVEDILOL 25 MG TABLET (FP) PO SCH (22:00)
[2021-09-25] MEDS ORDERED: CARVEDILOL 25 MG TABLET (FP) ONE (23:04)
[2021-09-25] MEDS ORDERED: HEPARIN NA (PORCINE) 5,000 UNITS/ML 1ML VIAL ONE (23:04)
[2021-09-25] MEDS: CARVEDILOL 25 MG TABLET (FP) PO SCH (23:09)
[2021-09-25] MEDS: HEPARIN NA (PORCINE) 5,000 UNITS/ML 1ML VIAL SQ SCH (23:09)
[2021-09-26 01:22] VITALS: BMI 29.2
[2021-09-26] MEDS ORDERED: FLU VACC QS2021-22(6MOS UP)/PF 60 MCG/0.5 ML SYRINGE IM ONE (01:22)
[2021-09-26] MEDS: INSULIN SLIDING SCALE (NOVOLOG) 1 VIAL SQ SCH ×4 (06:07→22:19)
[2021-09-26] MEDS: GABAPENTIN 100 MG CAPSULE PO SCH ×3 (06:41→22:19)
[2021-09-26] MEDS ORDERED: FUROSEMIDE 20 MG TABLET (FP) PO SCH (10:00)
[2021-09-26] MEDS: CARVEDILOL 25 MG TABLET (FP) PO SCH ×2 (10:00→22:18)
[2021-09-26] MEDS: HEPARIN NA (PORCINE) 5,000 UNITS/ML 1ML VIAL SQ SCH ×2 (10:00→22:19)
[2021-09-26] MEDS: ASPIRIN COATED 81 MG TABLET.EC PO SCH (10:00)
[2021-09-26] MEDS ORDERED: PNEUMOC 20-VAL CONJ-DIP CRM/PF 0.5 ML SYRINGE IM ONE (10:00)
[2021-09-26] MEDS: amLODIPine BESYLATE 10 MG TABLET (FP) PO SCH (10:00)
[2021-09-26 11:00] LABS: BASO % 2.1 % (0-2.0); EOS % 2.1 % (0-4.5); HEMATOCRIT 35.1 % (32.4-45.2); HEMOGLOBIN 11.6 GM/dL (10.7-15.3); MCHC 33.2 g/dl (32.0-36.0); MEAN CELL VOLUME 87.4 fl (80-96); MONO % 8.9 % (3.8-10.2); NEUT % 53.9 % (42.8-82.8); PLATELET COUNT 213 10^3/uL (134-434); RBC 4.01 M/mm3 (3.60-5.2); WHITE BLOOD COUNT 3.5 K/mm3 (4.0-10.0)
[2021-09-26 11:37] LABS: CHLORIDE 109 mmol/L (98-107); SODIUM 140 mmol/L (136-145)
[2021-09-26 11:44] LABS: ANION GAP 6 MMOL/L (8-16); BLOOD UREA NITROGEN 54.1 mg/dL (7-18); CALCIUM 9.6 mg/dL (8.5-10.1); CO2 24 mmol/L (21-32); GLUCOSE,RANDOM 214 mg/dL (74-106)
[2021-09-26 11:45] LABS: ALBUMIN 3.5 g/dl (3.4-5.0); MAGNESIUM 2.4 mg/dL (1.8-2.4)
[2021-09-26 11:47] LABS: CREATININE 2.6 mg/dL (0.55-1.3); PHOSPHOROUS 3.9 mg/dL (2.5-4.9); SGOT/AST 17 U/L (15-37); SGPT/ALT 26 U/L (13-61)
[2021-09-26 11:49] LABS: BILIRUBIN,TOTAL 0.4 mg/dL (0.2-1); TOT PROT 6.6 g/dl (6.4-8.2)
[2021-09-26 11:50] LABS: ALK PHOS 86 U/L (45-117)
[2021-09-26] MEDS: ATORVASTATIN CA 40 MG TABLET (FP) PO SCH (22:18)
[2021-09-26] MEDS: POLYETHYLENE GLYCOL (HEALTHYLAX) 3350 17 GM PACKET PO SCH (22:18)
[2021-09-26] MEDS: MONTELUKAST NA 10 MG TABLET PO SCH (22:19)
[2021-09-27] MEDS: INSULIN SLIDING SCALE (NOVOLOG) 1 VIAL SQ SCH ×4 (06:42→21:21)
[2021-09-27] MEDS: GABAPENTIN 100 MG CAPSULE PO SCH ×3 (06:42→21:22)
[2021-09-27 08:16] LABS: BASO % 1.3 % (0-2.0); EOS % 2.5 % (0-4.5); HEMATOCRIT 29.8 % (32.4-45.2); LYMPH % 28.6 % (8-40); MCH 29.5 pg (25.7-33.7); MCHC 33.7 g/dl (32.0-36.0); MEAN CELL VOLUME 87.7 fl (80-96); MEAN PLT VOLUME 8.4 fl (7.5-11.1); MONO % 12.6 % (3.8-10.2); PLATELET COUNT 185 10^3/uL (134-434); RBC 3.39 M/mm3 (3.60-5.2)
[2021-09-27 08:34] LABS: CALCIUM 8.8 mg/dL (8.5-10.1)
[2021-09-27 08:35] LABS: BLOOD UREA NITROGEN 60.4 mg/dL (7-18); MAGNESIUM 2.2 mg/dL (1.8-2.4)
[2021-09-27 08:37] LABS: CREATININE 2.8 mg/dL (0.55-1.3); PHOSPHOROUS 4.4 mg/dL (2.5-4.9)
[2021-09-27] MEDS: POLYETHYLENE GLYCOL (HEALTHYLAX) 3350 17 GM PACKET PO SCH ×2 (10:53→21:21)
[2021-09-27] MEDS: CARVEDILOL 25 MG TABLET (FP) PO SCH ×2 (10:53→21:21)
[2021-09-27] MEDS: HEPARIN NA (PORCINE) 5,000 UNITS/ML 1ML VIAL SQ SCH ×2 (10:53→21:21)
[2021-09-27] MEDS: ASPIRIN COATED 81 MG TABLET.EC PO SCH (10:53)
[2021-09-27] MEDS: amLODIPine BESYLATE 10 MG TABLET (FP) PO SCH (10:53)
[2021-09-27] MEDS: MONTELUKAST NA 10 MG TABLET PO SCH (21:21)
[2021-09-27] MEDS: ATORVASTATIN CA 40 MG TABLET (FP) PO SCH (21:22)
[2021-09-28] MEDS: GABAPENTIN 100 MG CAPSULE PO SCH ×2 (05:03→15:14)
[2021-09-28] MEDS: INSULIN SLIDING SCALE (NOVOLOG) 1 VIAL SQ SCH ×3 (06:02→17:53)
[2021-09-28 10:53] LABS: BASO % 0.3 % (0-2.0); EOS % 2.6 % (0-4.5); HEMATOCRIT 35.1 % (32.4-45.2); HEMOGLOBIN 11.5 GM/dL (10.7-15.3); LYMPH % 33.2 % (8-40); MCH 28.9 pg (25.7-33.7); MCHC 32.7 g/dl (32.0-36.0); MEAN CELL VOLUME 88.4 fl (80-96); MEAN PLT VOLUME 9.1 fl (7.5-11.1); MONO % 9.7 % (3.8-10.2); NEUT % 54.2 % (42.8-82.8); PLATELET COUNT 209 10^3/uL (134-434); RBC 3.97 M/mm3 (3.60-5.2); RDW 15.1 % (11.6-15.6); WHITE BLOOD COUNT 3.9 K/mm3 (4.0-10.0)
[2021-09-28 11:16] LABS: CALCIUM 9.1 mg/dL (8.5-10.1)
[2021-09-28 11:18] LABS: BLOOD UREA NITROGEN 70.3 mg/dL (7-18); MAGNESIUM 2.4 mg/dL (1.8-2.4)
[2021-09-28 11:21] LABS: CREATININE 2.8 mg/dL (0.55-1.3); PHOSPHOROUS 4.6 mg/dL (2.5-4.9)
[2021-09-28] MEDS: ASPIRIN COATED 81 MG TABLET.EC PO SCH (11:33)
[2021-09-28] MEDS: CARVEDILOL 25 MG TABLET (FP) PO SCH (11:33)
[2021-09-28] MEDS: HEPARIN NA (PORCINE) 5,000 UNITS/ML 1ML VIAL SQ SCH (11:33)
[2021-09-28] MEDS: amLODIPine BESYLATE 10 MG TABLET (FP) PO SCH (11:33)
[2021-09-28] MEDS: POLYETHYLENE GLYCOL (HEALTHYLAX) 3350 17 GM PACKET PO SCH (11:34)
[2021-09-28 18:16] VITALS: BP 150/74; PULSE 64; TEMP 98.3
== END 2021-09-28 18:48 | disposition home or self-care (01) | DRG 392 ==
LOC: JER 14:43 → JERBED 19:21 → OBSVTOIN 22:03 → J5S 23:42
PROVIDERS: ADMIT Internal Medicine; ATTEND Internal Medicine
DX: K59.00 Constipation, unspecified (principal); N17.9 Acute kidney failure, unspecified; I13.0 Hypertensive heart and chronic kidney disease with heart failure and stage 1 through stage 4 chronic kidney disease, or unspecified chronic kidney disease; N18.4 Chronic kidney disease, stage 4 (severe); I50.32 Chronic diastolic (congestive) heart failure; J44.9 Chronic obstructive pulmonary disease, unspecified; N28.1 Cyst of kidney, acquired; E11.42 Type 2 diabetes mellitus with diabetic polyneuropathy; E78.5 Hyperlipidemia, unspecified; N28.89 Other specified disorders of kidney and ureter; E11.22 Type 2 diabetes mellitus with diabetic chronic kidney disease; I44.7 Left bundle-branch block, unspecified; M48.00 Spinal stenosis, site unspecified; K57.90 Diverticulosis of intestine, part unspecified, without perforation or abscess without bleeding; E66.3 Overweight; Z86.718 Personal history of other venous thrombosis and embolism; Z85.038 Personal history of other malignant neoplasm of large intestine; Z90.5 Acquired absence of kidney; Z95.0 Presence of cardiac pacemaker; Z96.653 Presence of artificial knee joint, bilateral; Z68.29 Body mass index [BMI] 29.0-29.9, adult
CPT/HCPCS: 36415; 74176-TC; 80048; 80053; 81003; 82962; 83690; 83735; 84100; 84484; 85025; 85610; 85730; 86850; 86900; 86901; 87086; 90686; 93005; 93010; 97116-GP; 97162-GP; 99285-25; C9803-CS; G0008; G0378; J1644; U0003; U0005

== ENCOUNTER 2021-10-29 15:04 | Emergency (ER) | payer OTHER ==
[2021-10-29 15:14] VITALS: RESP 18; BMI 35.4
[2021-10-29] MEDS ORDERED: FAMOTIDINE 20 MG TABLET ONE (16:30)
[2021-10-29] MEDS: FAMOTIDINE 20 MG TABLET PO ONE ×2 (16:31→16:58)
[2021-10-29 17:28] LABS: HEMATOCRIT 34.4 % (32.4-45.2); MCH 30.3 pg (25.7-33.7); MCHC 34.9 g/dl (32.0-36.0); MEAN CELL VOLUME 86.8 fl (80-96); PLATELET COUNT 188 10^3/uL (134-434); RBC 3.97 M/mm3 (3.60-5.2); RDW 14.7 % (11.6-15.6); WHITE BLOOD COUNT 5.6 K/mm3 (4.0-10.0)
[2021-10-29] MEDS ORDERED: ACETAMINOPHEN 1000 MG/100 ML BAG IVPB ONE (17:34)
[2021-10-29 17:44] LABS: INR 1.02 (0.83-1.09); PROTHROMBIN TIME (PATIENT) 11.7 SEC (9.7-13.0)
[2021-10-29 17:48] LABS: CHLORIDE 105 mmol/L (98-107); SODIUM 137 mmol/L (136-145)
[2021-10-29 17:50] LABS: ALBUMIN 3.8 g/dl (3.4-5.0); ANION GAP 8 MMOL/L (8-16); BLOOD UREA NITROGEN 47.2 mg/dL (7-18); CALCIUM 9.2 mg/dL (8.5-10.1); CO2 24 mmol/L (21-32); GLUCOSE,RANDOM 110 mg/dL (74-106)
[2021-10-29 17:51] LABS: MAGNESIUM 1.9 mg/dL (1.8-2.4)
[2021-10-29 17:53] LABS: CREATININE 2.8 mg/dL (0.55-1.3); PHOSPHOROUS 3.9 mg/dL (2.5-4.9); SGOT/AST 26 U/L (15-37); SGPT/ALT 33 U/L (13-61)
[2021-10-29] MEDS ORDERED: ACETAMINOPHEN INJECTION 100 ML IVPB ONE (17:53)
[2021-10-29 17:54] LABS: ANISOCYTOSIS 0; HELMET CELLS 0; HOWELL-JOLLY BODIES 0; MACROCYTOSIS 0; OVALOCYTE 0; ROULEAU 0; SICKELED CELLS 0; TARGET CELLS 0; TEAR DROP CELLS 0; TOXIC GRANULATION 0
[2021-10-29 17:55] LABS: BILIRUBIN,TOTAL 0.5 mg/dL (0.2-1); TOT PROT 7.2 g/dl (6.4-8.2)
[2021-10-29 17:56] LABS: ALK PHOS 88 U/L (45-117)
[2021-10-29 18:46] LABS: EPI CELLS 21 /uL (0-25.1); HYALINE CASTS 1 /uL (0-3.1); PH,URINE 5.5 (5.0-8.0); URINE APPEARANCE CLEAR; URINE BACTERIA 172 /uL (0-1359); URINE BILIRUBIN NEGATIVE (NEGATIVE); URINE COLOR YELLOW; URINE GLUCOSE (UA) NEGATIVE (NEGATIVE); URINE KETONE NEGATIVE (NEGATIVE); URINE LEUK ESTERASE NEGATIVE (NEGATIVE); URINE NITRITE NEGATIVE (NEGATIVE); URINE PROTEIN 3+ (NEGATIVE); URINE RBC 6 /uL (0-23.9); URINE UROBILINOGEN 0.2 mg/dL (0.2-1.0); URINE WBC 24 /uL (0-25.8)
[2021-10-29 19:09] LABS: CALCIUM 8.4 mg/dL (8.5-10.1)
[2021-10-29 19:10] LABS: BLOOD UREA NITROGEN 44.5 mg/dL (7-18)
[2021-10-29 19:13] LABS: CREATININE 2.7 mg/dL (0.55-1.3)
[2021-10-29] MEDS ORDERED: BEBTELOVIMAB (EUA) 175 MG/2 ML VIAL IVPUSH ONE (19:35)
[2021-10-29 21:46] VITALS: BP 147/70; PULSE 63; TEMP 98.7
== END 2021-10-29 23:00 | disposition home or self-care (01) ==
LOC: JER 15:04
PROC: 3E0333Z Introduction of Anti-inflammatory into Peripheral Vein, Percutaneous Approach (ICD-10-PCS; principal; 2021-10-29)
PROC: 3E03329 Introduction of Other Anti-infective into Peripheral Vein, Percutaneous Approach (ICD-10-PCS; 2021-10-29)
DX: U07.1 COVID-19 (principal)
CPT/HCPCS: 0241U-QW; 36415; 71045-TC-FY; 80048; 80053; 81003; 82962; 83735; 84100; 84484; 85025; 85610; 87086; 93005; 93010; 99285-25; M0222; Q0222

== ENCOUNTER 2022-01-24 10:35 | Emergency (ER) | payer OTHER ==
[2022-01-24 10:43] VITALS: BP 142/73; PULSE 70; RESP 18; TEMP 97.9; BMI 25.8
[2022-01-24] MEDS ORDERED: ACETAMINOPHEN 325 MG TABLET (FP) PO ONE (11:07)
[2022-01-24] MEDS ORDERED: CYCLOBENZAPRINE HCL 5 MG TABLET PO ONE (11:07)
[2022-01-24] MEDS ORDERED: LIDOCAINE 5% TOPICAL PATCH TP ONE (11:07)
[2022-01-24] MEDS ORDERED: CYCLOBENZAPRINE HCL 10 MG TABLET (FP) ONE (11:14)
[2022-01-24] MEDS ORDERED: ACETAMINOPHEN 325 MG TABLET (FP) ONE (11:14)
[2022-01-24] MEDS ORDERED: LIDOCAINE 5% TOPICAL PATCH ONE (11:15)
== END 2022-01-24 13:04 | disposition home or self-care (01) ==
LOC: JER 10:35
DX: M54.50 Low back pain, unspecified (principal)
CPT/HCPCS: 99283-25

== ENCOUNTER 2022-03-06 10:38 | Inpatient (IN) | payer OTHER ==
[2022-03-06 11:04] VITALS: BMI 25.0
[2022-03-06] MEDS ORDERED: FAMOTIDINE 20 MG/50 ML IVPB 20 MG/50 ML MG IVPB ONE ×2 (11:13→13:35)
[2022-03-06] MEDS ORDERED: MAG HYDROX/AL HYDROX/SIMETH -MYLANTA- ORAL SUSPENSION PO ONE (11:13)
[2022-03-06] MEDS ORDERED: ACETAMINOPHEN 1000 MG/100 ML BAG IVPB ONE (11:13)
[2022-03-06 12:31] LABS: BASO % 1.7 % (0-2.0); EOS % 2.9 % (0-4.5); HEMOGLOBIN 11.4 GM/dL (10.7-15.3); LYMPH % 34.2 % (8-40); MCH 29.1 pg (25.7-33.7); MCHC 32.7 g/dl (32.0-36.0); MEAN CELL VOLUME 88.9 fl (80-96); MEAN PLT VOLUME 8.3 fl (7.5-11.1); MONO % 9.6 % (3.8-10.2); NEUT % 51.6 % (42.8-82.8); PLATELET COUNT 225 10^3/uL (134-434); RBC 3.93 M/mm3 (3.60-5.2); RDW 14.4 % (11.6-15.6); WHITE BLOOD COUNT 4.1 K/mm3 (4.0-10.0)
[2022-03-06 13:04] LABS: CHLORIDE 108 mmol/L (98-107); SODIUM 140 mmol/L (136-145)
[2022-03-06 13:06] LABS: CALCIUM 9.4 mg/dL (8.5-10.1)
[2022-03-06 13:07] LABS: ALBUMIN 3.5 g/dl (3.4-5.0); BLOOD UREA NITROGEN 78.5 mg/dL (7-18); CO2 22 mmol/L (21-32); GLUCOSE,RANDOM 141 mg/dL (74-106); LIPASE 249 U/L (73-393)
[2022-03-06 13:09] LABS: CREATININE 3.5 mg/dL (0.55-1.3)
[2022-03-06 13:10] LABS: SGPT/ALT 25 U/L (13-61)
[2022-03-06 13:11] LABS: BILIRUBIN,TOTAL 0.2 mg/dL (0.2-1); SGOT/AST 17 U/L (15-37); TOT PROT 7.2 g/dl (6.4-8.2)
[2022-03-06 13:12] LABS: ALK PHOS 91 U/L (45-117)
[2022-03-06 13:24] LABS: ANION GAP 10 MMOL/L (8-16)
[2022-03-06] MEDS ORDERED: ACETAMINOPHEN INJECTION 100 ML IVPB ONE (13:34)
[2022-03-06] MEDS ORDERED: MAG HYDROX/AL HYDROX/SIMETH 30 ML UNIT-DOSE CUP ONE (13:35)
[2022-03-06] MEDS ORDERED: ASPIRIN 81 MG CHEWABLE TABLETS PO ONE (14:12)
[2022-03-06] MEDS ORDERED: ASPIRIN 81 MG CHEWABLE TABLETS ONE (14:26)
[2022-03-06] MEDS: INSULIN SLIDING SCALE (NOVOLOG) 1 VIAL SQ SCH ×2 (21:34→23:30)
[2022-03-06] MEDS: SODIUM CHLORIDE 1,000 ML IV SCH (21:38)
[2022-03-06] MEDS ORDERED: CARVEDILOL 25 MG TABLET (FP) ONE (22:55)
[2022-03-06] MEDS ORDERED: GABAPENTIN 100 MG CAPSULE ONE (22:55)
[2022-03-06] MEDS ORDERED: DOCUSATE SODIUM 100 MG CAPSULE (FP) PO ONE (22:55)
[2022-03-06] MEDS ORDERED: HEPARIN NA (PORCINE) 5,000 UNITS/ML 1ML VIAL ONE (22:56)
[2022-03-06] MEDS ORDERED: ATORVASTATIN CA 40 MG TABLET (FP) ONE (23:00)
[2022-03-06] MEDS: DOCUSATE SODIUM 100 MG CAPSULE (FP) PO SCH (23:05)
[2022-03-06] MEDS: CARVEDILOL 25 MG TABLET (FP) PO SCH (23:05)
[2022-03-06] MEDS: POLYETHYLENE GLYCOL (HEALTHYLAX) 3350 17 GM PACKET PO SCH (23:05)
[2022-03-06] MEDS: HEPARIN NA (PORCINE) 5,000 UNITS/ML 1ML VIAL SQ SCH (23:06)
[2022-03-06] MEDS: ATORVASTATIN CA 40 MG TABLET (FP) PO SCH (23:06)
[2022-03-06] MEDS: GABAPENTIN 100 MG CAPSULE PO SCH (23:06)
[2022-03-07] MEDS ORDERED: MELATONIN 5 MG TABLETS PO ONE (01:08)
[2022-03-07] MEDS ORDERED: MELATONIN 5 MG TABLETS ONE (01:20)
[2022-03-07] MEDS ORDERED: GABAPENTIN 100 MG CAPSULE ONE ×2 (06:14→13:49)
[2022-03-07] MEDS ORDERED: HEPARIN NA (PORCINE) 5,000 UNITS/ML 1ML VIAL ONE ×2 (06:14→13:49)
[2022-03-07] MEDS: GABAPENTIN 100 MG CAPSULE PO SCH ×4 (06:20→22:21)
[2022-03-07] MEDS: HEPARIN NA (PORCINE) 5,000 UNITS/ML 1ML VIAL SQ SCH ×3 (06:20→21:51)
[2022-03-07 07:10] LABS: EPI CELLS 31 /uL (0-25.1); HYALINE CASTS 1 /uL (0-3.1); PH,URINE 5.5 (5.0-8.0); URINE APPEARANCE CLEAR; URINE BACTERIA 255 /uL (0-1359); URINE BILIRUBIN NEGATIVE (NEGATIVE); URINE COLOR YELLOW; URINE GLUCOSE (UA) NEGATIVE (NEGATIVE); URINE KETONE NEGATIVE (NEGATIVE); URINE LEUK ESTERASE NEGATIVE (NEGATIVE); URINE NITRITE NEGATIVE (NEGATIVE); URINE PROTEIN 3+ (NEGATIVE); URINE RBC 12 /uL (0-23.9); URINE UROBILINOGEN 0.2 mg/dL (0.2-1.0); URINE WBC 43 /uL (0-25.8)
[2022-03-07 08:44] LABS: BASO % 0.3 % (0-2.0); EOS % 3.9 % (0-4.5); HEMATOCRIT 29.8 % (32.4-45.2); HEMOGLOBIN 9.7 GM/dL (10.7-15.3); LYMPH % 36.7 % (8-40); MCH 29.2 pg (25.7-33.7); MCHC 32.6 g/dl (32.0-36.0); MEAN CELL VOLUME 89.7 fl (80-96); MEAN PLT VOLUME 9.1 fl (7.5-11.1); MONO % 12.8 % (3.8-10.2); NEUT % 46.3 % (42.8-82.8); PLATELET COUNT 187 10^3/uL (134-434); RBC 3.32 M/mm3 (3.60-5.2); RDW 14.7 % (11.6-15.6); WHITE BLOOD COUNT 4.2 K/mm3 (4.0-10.0)
[2022-03-07 09:18] LABS: CALCIUM 8.6 mg/dL (8.5-10.1); MAGNESIUM 2.1 mg/dL (1.8-2.4)
[2022-03-07 09:19] LABS: BLOOD UREA NITROGEN 75.8 mg/dL (7-18)
[2022-03-07] MEDS: INSULIN SLIDING SCALE (NOVOLOG) 1 VIAL SQ SCH ×4 (09:20→22:16)
[2022-03-07 09:21] LABS: PHOSPHOROUS 4.7 mg/dL (2.5-4.9)
[2022-03-07 09:22] LABS: CREATININE 3.2 mg/dL (0.55-1.3)
[2022-03-07] MEDS ORDERED: CARVEDILOL 25 MG TABLET (FP) ONE (09:26)
[2022-03-07] MEDS ORDERED: FUROSEMIDE 20 MG TABLET (FP) ONE (09:26)
[2022-03-07] MEDS ORDERED: DOCUSATE SODIUM 100 MG CAPSULE (FP) PO ONE (09:26)
[2022-03-07] MEDS ORDERED: amLODIPine BESYLATE 10 MG TABLET (FP) ONE (09:26)
[2022-03-07] MEDS: amLODIPine BESYLATE 10 MG TABLET (FP) PO SCH (09:38)
[2022-03-07] MEDS: CARVEDILOL 25 MG TABLET (FP) PO SCH ×3 (09:38→22:22)
[2022-03-07] MEDS: FUROSEMIDE 20 MG TABLET (FP) PO SCH (09:38)
[2022-03-07] MEDS: DOCUSATE SODIUM 100 MG CAPSULE (FP) PO SCH ×3 (09:38→22:21)
[2022-03-07] MEDS ORDERED: amLODIPine BESYLATE 10 MG TABLET (FP) PO SCH (10:00)
[2022-03-07] MEDS: POLYETHYLENE GLYCOL (HEALTHYLAX) 3350 17 GM PACKET PO SCH ×2 (13:13→22:21)
[2022-03-07] MEDS: ATORVASTATIN CA 40 MG TABLET (FP) PO SCH ×2 (21:51→22:22)
[2022-03-07] MEDS: SODIUM CHLORIDE 1,000 ML IV SCH (23:42)
[2022-03-08] MEDS: HEPARIN NA (PORCINE) 5,000 UNITS/ML 1ML VIAL SQ SCH ×3 (05:41→21:21)
[2022-03-08] MEDS: GABAPENTIN 100 MG CAPSULE PO SCH ×3 (05:41→21:22)
[2022-03-08] MEDS: INSULIN SLIDING SCALE (NOVOLOG) 1 VIAL SQ SCH ×4 (06:05→21:22)
[2022-03-08] MEDS: CARVEDILOL 25 MG TABLET (FP) PO SCH ×2 (09:29→21:21)
[2022-03-08] MEDS: DOCUSATE SODIUM 100 MG CAPSULE (FP) PO SCH ×2 (09:29→21:21)
[2022-03-08] MEDS: amLODIPine BESYLATE 10 MG TABLET (FP) PO SCH (09:30)
[2022-03-08] MEDS: POLYETHYLENE GLYCOL (HEALTHYLAX) 3350 17 GM PACKET PO SCH ×2 (09:30→21:21)
[2022-03-08 12:09] LABS: ALBUMIN 3.3 g/dl (3.4-5.0); BILIRUBIN,TOTAL 0.2 mg/dL (0.2-1); BLOOD UREA NITROGEN 75.9 mg/dL (7-18); CALCIUM 9.2 mg/dL (8.5-10.1); CREATININE 3.4 mg/dL (0.55-1.3); TOT PROT 6.6 g/dl (6.4-8.2)
[2022-03-08] MEDS: SODIUM ZIRCONIUM CYCLOSILICATE (LOKELMA) 5 GM PACKET PO SCH (14:31)
[2022-03-08] MEDS ORDERED: SODIUM CHLORIDE 0.45% 1,000 ML IV SCH (15:15)
[2022-03-08 18:25] VITALS: RESP 18
[2022-03-08] MEDS: ATORVASTATIN CA 40 MG TABLET (FP) PO SCH (21:22)
[2022-03-09] MEDS: INSULIN SLIDING SCALE (NOVOLOG) 1 VIAL SQ SCH ×4 (06:51→22:04)
[2022-03-09] MEDS: HEPARIN NA (PORCINE) 5,000 UNITS/ML 1ML VIAL SQ SCH ×3 (06:51→21:51)
[2022-03-09] MEDS: GABAPENTIN 100 MG CAPSULE PO SCH ×3 (06:51→21:51)
[2022-03-09] MEDS: DOCUSATE SODIUM 100 MG CAPSULE (FP) PO SCH ×2 (09:23→21:51)
[2022-03-09] MEDS: amLODIPine BESYLATE 10 MG TABLET (FP) PO SCH (09:24)
[2022-03-09] MEDS: CARVEDILOL 25 MG TABLET (FP) PO SCH ×2 (09:24→21:51)
[2022-03-09] MEDS: POLYETHYLENE GLYCOL (HEALTHYLAX) 3350 17 GM PACKET PO SCH ×2 (09:27→21:50)
[2022-03-09] MEDS ORDERED: hydrALAZINE HCL 20 MG/ML VIAL IVPUSH ONE ×2 (09:45)
[2022-03-09 11:02] LABS: BASO % 1.4 % (0-2.0); EOS % 2.7 % (0-4.5); HEMATOCRIT 32.2 % (32.4-45.2); HEMOGLOBIN 10.9 GM/dL (10.7-15.3); LYMPH % 36.3 % (8-40); MCHC 33.9 g/dl (32.0-36.0); MEAN CELL VOLUME 88.4 fl (80-96); MEAN PLT VOLUME 8.6 fl (7.5-11.1); NEUT % 47.6 % (42.8-82.8); PLATELET COUNT 222 10^3/uL (134-434); RBC 3.65 M/mm3 (3.60-5.2); RDW 14.6 % (11.6-15.6); WHITE BLOOD COUNT 4.2 K/mm3 (4.0-10.0)
[2022-03-09] MEDS: SODIUM ZIRCONIUM CYCLOSILICATE (LOKELMA) 5 GM PACKET PO SCH (11:09)
[2022-03-09 11:20] LABS: ALBUMIN 3.5 g/dl (3.4-5.0); BLOOD UREA NITROGEN 78.5 mg/dL (7-18); CALCIUM 9.3 mg/dL (8.5-10.1)
[2022-03-09 11:23] LABS: CREATININE 3.8 mg/dL (0.55-1.3)
[2022-03-09 11:25] LABS: BILIRUBIN,TOTAL 0.4 mg/dL (0.2-1); TOT PROT 6.9 g/dl (6.4-8.2)
[2022-03-09] MEDS: ATORVASTATIN CA 40 MG TABLET (FP) PO SCH (21:51)
[2022-03-10] MEDS: HEPARIN NA (PORCINE) 5,000 UNITS/ML 1ML VIAL SQ SCH (05:08)
[2022-03-10] MEDS: GABAPENTIN 100 MG CAPSULE PO SCH (05:08)
[2022-03-10] MEDS: INSULIN SLIDING SCALE (NOVOLOG) 1 VIAL SQ SCH ×2 (06:40→13:07)
[2022-03-10] MEDS: POLYETHYLENE GLYCOL (HEALTHYLAX) 3350 17 GM PACKET PO SCH (10:04)
[2022-03-10] MEDS: CARVEDILOL 25 MG TABLET (FP) PO SCH (10:04)
[2022-03-10] MEDS: DOCUSATE SODIUM 100 MG CAPSULE (FP) PO SCH (10:04)
[2022-03-10] MEDS: SODIUM ZIRCONIUM CYCLOSILICATE (LOKELMA) 5 GM PACKET PO SCH (10:04)
[2022-03-10] MEDS: FUROSEMIDE 20 MG TABLET (FP) PO SCH (10:04)
[2022-03-10] MEDS: amLODIPine BESYLATE 10 MG TABLET (FP) PO SCH (10:05)
[2022-03-10 11:27] LABS: CALCIUM 9.1 mg/dL (8.5-10.1)
[2022-03-10 11:28] LABS: BLOOD UREA NITROGEN 84.8 mg/dL (7-18)
[2022-03-10 11:31] LABS: CREATININE 3.8 mg/dL (0.55-1.3)
[2022-03-10 16:19] VITALS: TEMP 98
[2022-03-10 16:21] VITALS: BP 128/66; PULSE 72
== END 2022-03-10 16:00 | disposition home health service (06) | DRG 683 ==
LOC: JER 10:38 → JERBED 16:16 → OBSVTOIN 03-07 11:38 → J6W 03-07 21:10
PROVIDERS: ADMIT Internal Medicine; ATTEND Internal Medicine
DX: N17.9 Acute kidney failure, unspecified (principal); I13.0 Hypertensive heart and chronic kidney disease with heart failure and stage 1 through stage 4 chronic kidney disease, or unspecified chronic kidney disease; I50.32 Chronic diastolic (congestive) heart failure; E11.22 Type 2 diabetes mellitus with diabetic chronic kidney disease; R55 Syncope and collapse; N18.4 Chronic kidney disease, stage 4 (severe); R10.9 Unspecified abdominal pain; E86.0 Dehydration; E87.5 Hyperkalemia; E78.5 Hyperlipidemia, unspecified; K21.9 Gastro-esophageal reflux disease without esophagitis; E11.65 Type 2 diabetes mellitus with hyperglycemia; R42 Dizziness and giddiness; G30.9 Alzheimer's disease, unspecified; Z95.0 Presence of cardiac pacemaker
CPT/HCPCS: 0241U-QW; 36415; 74150-TC; 76775-TC; 80048; 80053; 80061; 81003; 82962; 83036; 83605; 83690; 83735; 84100; 84484; 85025; 87086; 93005; 93010; 93306-TC; 93880-TC; 94010; 99285-25; G0378; J1644

== ENCOUNTER 2022-05-19 15:25 | Observation (INO) | payer OTHER ==
[2022-05-19] MEDS ORDERED: ACETAMINOPHEN 1000 MG/100 ML BAG IVPB ONE (16:19)
[2022-05-19 17:52] LABS: BASO % 1.4 % (0-2.0); EOS % 1.9 % (0-4.5); HEMATOCRIT 35.1 % (32.4-45.2); HEMOGLOBIN 11.7 GM/dL (10.7-15.3); LYMPH % 30.5 % (8-40); MCH 29.3 pg (25.7-33.7); MCHC 33.3 g/dl (32.0-36.0); MEAN CELL VOLUME 87.9 fl (80-96); MEAN PLT VOLUME 8.4 fl (7.5-11.1); NEUT % 56.2 % (42.8-82.8); PLATELET COUNT 302 10^3/uL (134-434); RBC 3.99 M/mm3 (3.60-5.2); RDW 14.7 % (11.6-15.6); WHITE BLOOD COUNT 7.1 K/mm3 (4.0-10.0)
[2022-05-19 17:59] LABS: INR 0.92 (0.83-1.09); PROTHROMBIN TIME (PATIENT) 10.7 SEC (9.7-13.0)
[2022-05-19 18:02] LABS: ACTIVATED PTT 30.9 SECONDS (25.2-36.5)
[2022-05-19 18:10] LABS: CHLORIDE 105 mmol/L (98-107); SODIUM 135 mmol/L (136-145)
[2022-05-19 18:55] LABS: ALBUMIN 3.7 g/dl (3.4-5.0); ANION GAP 12 MMOL/L (8-16); BLOOD UREA NITROGEN 77.1 mg/dL (7-18); CO2 18 mmol/L (21-32)
[2022-05-19 18:57] LABS: CALCIUM 9.7 mg/dL (8.5-10.1)
[2022-05-19 18:58] LABS: BILIRUBIN,TOTAL 0.3 mg/dL (0.2-1); GLUCOSE,RANDOM 84 mg/dL (74-106); SGOT/AST 21 U/L (15-37)
[2022-05-19 18:59] LABS: ALK PHOS 100 U/L (45-117); LIPASE 210 U/L (73-393)
[2022-05-19 19:02] LABS: CREATININE 3.8 mg/dL (0.55-1.3); SGPT/ALT 18 U/L (13-61)
[2022-05-19 19:03] LABS: TOT PROT 7.5 g/dl (6.4-8.2)
[2022-05-19] MEDS ORDERED: ACETAMINOPHEN 325 MG TABLET (FP) PO PRN (21:49)
[2022-05-19] MEDS ORDERED: MELATONIN 5 MG TABLETS PO PRN (21:52)
[2022-05-19] MEDS ORDERED: SIMETHICONE 80 MG TAB.CHEW (FP) PO PRN (21:52)
[2022-05-19] MEDS ORDERED: GABAPENTIN 100 MG CAPSULE PO SCH (22:00)
[2022-05-19] MEDS ORDERED: ATORVASTATIN CA 40 MG TABLET (FP) PO SCH (22:00)
[2022-05-20] MEDS ORDERED: ALBUTEROL SO4 HFA INHALER IH PRN (00:46)
[2022-05-20] MEDS: CARVEDILOL 25 MG TABLET (FP) PO SCH ×2 (01:38→10:08)
[2022-05-20] MEDS: HEPARIN NA (PORCINE) 5,000 UNITS/ML 1ML VIAL SQ SCH ×3 (01:38→14:05)
[2022-05-20] MEDS: MAG HYDROX/AL HYDROX/SIMETH 30 ML UNIT-DOSE CUP PO SCH ×3 (01:39→14:05)
[2022-05-20] MEDS ORDERED: ATORVASTATIN CA 40 MG TABLET (FP) ONE (01:46)
[2022-05-20] MEDS ORDERED: GABAPENTIN 100 MG CAPSULE ONE (01:46)
[2022-05-20] MEDS ORDERED: MAG HYDROX/AL HYDROX/SIMETH 30 ML UNIT-DOSE CUP ONE (01:46)
[2022-05-20] MEDS ORDERED: CARVEDILOL 25 MG TABLET (FP) ONE ×2 (01:46→01:52)
[2022-05-20] MEDS ORDERED: HEPARIN NA (PORCINE) 5,000 UNITS/ML 1ML VIAL ONE (01:46)
[2022-05-20] MEDS: INSULIN SLIDING SCALE (NOVOLOG) 1 VIAL SQ SCH ×4 (01:58→16:44)
[2022-05-20 03:44] VITALS: BMI 25.8
[2022-05-20] MEDS: GABAPENTIN 100 MG CAPSULE PO SCH ×2 (06:22→14:05)
[2022-05-20 08:40] LABS: HEMATOCRIT 32.6 % (32.4-45.2); HEMOGLOBIN 11.1 GM/dL (10.7-15.3); MCH 29.7 pg (25.7-33.7); MCHC 34.1 g/dl (32.0-36.0); MEAN PLT VOLUME 8.7 fl (7.5-11.1); PLATELET COUNT 258 10^3/uL (134-434); RBC 3.75 M/mm3 (3.60-5.2); RDW 14.6 % (11.6-15.6); WHITE BLOOD COUNT 4.6 K/mm3 (4.0-10.0)
[2022-05-20] MEDS ORDERED: POLYETHYLENE GLYCOL (HEALTHYLAX) 3350 17 GM PACKET PO SCH (10:00)
[2022-05-20] MEDS ORDERED: amLODIPine BESYLATE 10 MG TABLET (FP) PO SCH (10:00)
[2022-05-20] MEDS ORDERED: hydrALAZINE HCL 10 MG TABLET PO SCH (14:00)
[2022-05-20 14:17] VITALS: RESP 20
[2022-05-20 14:26] VITALS: BP 121/50; PULSE 65; TEMP 98
[2022-05-20 16:06] LABS: BLOOD UREA NITROGEN 78.1 mg/dL (7-18); CALCIUM 8.6 mg/dL (8.5-10.1)
[2022-05-20 16:10] LABS: CREATININE 3.9 mg/dL (0.55-1.3)
== END 2022-05-20 18:51 | disposition home or self-care (01) ==
LOC: JER 15:25 → JERBED 19:33 → J4W 05-20 05:12
PROVIDERS: ADMIT Internal Medicine; ATTEND Internal Medicine
PROC: 3E023GC Introduction of Other Therapeutic Substance into Muscle, Percutaneous Approach (ICD-10-PCS; principal; 2022-05-19)
PROC: 3E013VG Introduction of Insulin into Subcutaneous Tissue, Percutaneous Approach (ICD-10-PCS; 2022-05-19)
DX: I16.0 Hypertensive urgency (principal); R10.9 Unspecified abdominal pain; E78.5 Hyperlipidemia, unspecified; Z95.0 Presence of cardiac pacemaker; I44.7 Left bundle-branch block, unspecified; I13.10 Hypertensive heart and chronic kidney disease without heart failure, with stage 1 through stage 4 chronic kidney disease, or unspecified chronic kidney disease; N18.9 Chronic kidney disease, unspecified; Z90.5 Acquired absence of kidney; I45.81 Long QT syndrome; R77.8 Other specified abnormalities of plasma proteins
CPT/HCPCS: 0241U-QW; 36415; 71045-TC-FY; 74176-TC; 80048; 80053; 82962; 83605; 83690; 84439; 84484; 85025; 85027; 85610; 85730; 93005; 93010; 96372; 99285-25; G0378; J1644

== ENCOUNTER 2022-05-27 18:50 | Inpatient (IN) | payer OTHER ==
[2022-05-27 19:00] VITALS: BMI 34.3
[2022-05-27] MEDS ORDERED: DEXTROSE 50%-WATER - 25 GM/50 ML VIAL IVPUSH ONE (19:51)
[2022-05-27] MEDS ORDERED: DEXTROSE 50%-WATER 25 GM/50 ML DISP.SYRIN ONE (19:57)
[2022-05-27 20:35] LABS: BASO % 1.3 % (0-2.0); EOS % 2.4 % (0-4.5); HEMATOCRIT 30.8 % (32.4-45.2); LYMPH % 31.8 % (8-40); MCH 28.9 pg (25.7-33.7); MCHC 32.6 g/dl (32.0-36.0); MEAN CELL VOLUME 88.6 fl (80-96); MEAN PLT VOLUME 8.9 fl (7.5-11.1); NEUT % 52.5 % (42.8-82.8); PLATELET COUNT 246 10^3/uL (134-434); RBC 3.47 M/mm3 (3.60-5.2); WHITE BLOOD COUNT 6.4 K/mm3 (4.0-10.0)
[2022-05-27 21:04] LABS: CHLORIDE 111 mmol/L (98-107); SODIUM 135 mmol/L (136-145)
[2022-05-27 21:06] LABS: ALBUMIN 3.5 g/dl (3.4-5.0); CALCIUM 8.7 mg/dL (8.5-10.1); CO2 16 mmol/L (21-32)
[2022-05-27 21:09] LABS: CREATININE 4.5 mg/dL (0.55-1.3); SGOT/AST 20 U/L (15-37); SGPT/ALT 21 U/L (13-61)
[2022-05-27 21:11] LABS: BILIRUBIN,TOTAL 0.2 mg/dL (0.2-1)
[2022-05-27 21:12] LABS: ALK PHOS 79 U/L (45-117)
[2022-05-27 21:18] LABS: ANION GAP 8 MMOL/L (8-16); BLOOD UREA NITROGEN 115.1 mg/dL (7-18); GLUCOSE,RANDOM 35 mg/dL (74-106)
[2022-05-27 22:41] LABS: CHLORIDE 111 mmol/L (98-107); SODIUM 136 mmol/L (136-145)
[2022-05-27 22:42] LABS: CALCIUM 8.5 mg/dL (8.5-10.1); CO2 17 mmol/L (21-32)
[2022-05-27 22:43] LABS: GLUCOSE,RANDOM 99 mg/dL (74-106)
[2022-05-27 22:46] LABS: CREATININE 4.5 mg/dL (0.55-1.3)
[2022-05-27 23:13] LABS: ANION GAP 8 MMOL/L (8-16)
[2022-05-27] MEDS ORDERED: CALCIUM CHLORIDE 1 GM/10 ML *DISP.SYRIN IVPUSH ONE (23:25)
[2022-05-27] MEDS ORDERED: CALCIUM GLUCONATE 10% - 1,000 MG/10 ML VIAL IVPUSH ONE (23:29)
[2022-05-27] MEDS ORDERED: SODIUM ZIRCONIUM CYCLOSILICATE (LOKELMA) 5 GM PACKET PO ONE (23:45)
[2022-05-27 23:50] LABS: EPI CELLS 22 /uL (0-25.1); HYALINE CASTS 0 /uL (0-3.1); URINE APPEARANCE CLEAR; URINE BACTERIA 170 /uL (0-1359); URINE BILIRUBIN NEGATIVE (NEGATIVE); URINE COLOR YELLOW; URINE GLUCOSE (UA) NEGATIVE (NEGATIVE); URINE KETONE NEGATIVE (NEGATIVE); URINE LEUK ESTERASE TRACE (NEGATIVE); URINE NITRITE NEGATIVE (NEGATIVE); URINE PROTEIN 3+ (NEGATIVE); URINE UROBILINOGEN 0.2 mg/dL (0.2-1.0); URINE WBC 25 /uL (0-25.8)
[2022-05-28] MEDS ORDERED: SODIUM ZIRCONIUM CYCLOSILICATE (LOKELMA) 5 GM PACKET ONE ×3 (00:05→05:09)
[2022-05-28] MEDS ORDERED: CALCIUM GLUC IN NACL, ISO-OSM 1 GM/50 ML BAG IVPB ONE (00:05)
[2022-05-28] MEDS ORDERED: DEXTROSE 50%-WATER 25 GM/50 ML DISP.SYRIN IVPUSH ONE (00:12)
[2022-05-28] MEDS ORDERED: INSULIN REGULAR HUMAN 100 UNITS/ML *VIAL IVPUSH ONE (00:14)
[2022-05-28] MEDS ORDERED: DEXTROSE 5%-NORMAL SALINE 1,000 ML IV SCH ×2 (00:15→04:29)
[2022-05-28 00:31] LABS: URINE RBC 19.5 /uL (0-23.9)
[2022-05-28] MEDS ORDERED: SODIUM BICARBONATE 8.4% 50 MEQ/50 ML DISP.SYRIN IVPUSH ONE ×2 (00:31→05:04)
[2022-05-28] MEDS ORDERED: DEXTROSE 50%-WATER 25 GM/50 ML DISP.SYRIN IVPUSH PRN (00:39)
[2022-05-28 01:36] LABS: VENOUS BASE EXCESS -11.2 mmol/L (-2-2); VENOUS O2 SATURATION 91.7 % (70-80); VENOUS PCO2 28.5 mmHg (38-52); VENOUS PH 7.302 (7.310-7.410)
[2022-05-28] MEDS: SODIUM ZIRCONIUM CYCLOSILICATE (LOKELMA) 5 GM PACKET PO SCH ×3 (01:40→13:45)
[2022-05-28] MEDS ORDERED: SODIUM BICARBONATE 8.4% 50 MEQ/50 ML VIAL ONE ×2 (01:42→05:09)
[2022-05-28] MEDS ORDERED: DEXTROSE 50%-WATER 25 GM/50 ML DISP.SYRIN ONE ×3 (01:42→04:03)
[2022-05-28] MEDS: ALBUTEROL SO4 2.5/IPRATROPIUM 0.5 INH SOL 3 ML VIAL.NEB. NEB SCH ×2 (01:42→01:43)
[2022-05-28 01:43] LABS: CHLORIDE 110 mmol/L (98-107); SODIUM 134 mmol/L (136-145)
[2022-05-28 01:45] LABS: CO2 14 mmol/L (21-32); GLUCOSE,RANDOM 102 mg/dL (74-106)
[2022-05-28 01:49] LABS: CREATININE 4.2 mg/dL (0.55-1.3)
[2022-05-28 02:09] LABS: ANION GAP 10 MMOL/L (8-16); BLOOD UREA NITROGEN 111.6 mg/dL (7-18); CALCIUM 18.9 mg/dL (8.5-10.1)
[2022-05-28] MEDS ORDERED: ALBUTEROL SO4 2.5/IPRATROPIUM 0.5 INH SOL 3 ML VIAL.NEB. NEB ONE (02:27)
[2022-05-28] MEDS ORDERED: GABAPENTIN 100 MG CAPSULE PO SCH ×2 (02:30→06:00)
[2022-05-28] MEDS ORDERED: ALBUTEROL SO4 HFA INHALER IH PRN (02:30)
[2022-05-28 04:19] LABS: VENOUS O2 SATURATION 45.6 % (70-80)
[2022-05-28 04:20] LABS: CHLORIDE 113 mmol/L (98-107); SODIUM 138 mmol/L (136-145)
[2022-05-28 04:22] LABS: ANION GAP 5 MMOL/L (8-16); CO2 19 mmol/L (21-32)
[2022-05-28 04:23] LABS: VENOUS PH 7.152 (7.310-7.410)
[2022-05-28 04:25] LABS: CREATININE 4.5 mg/dL (0.55-1.3)
[2022-05-28 04:46] LABS: BLOOD UREA NITROGEN 118.2 mg/dL (7-18); CALCIUM 8.6 mg/dL (8.5-10.1); GLUCOSE,RANDOM 36 mg/dL (74-106)
[2022-05-28] MEDS: hydrALAZINE HCL 10 MG TABLET PO SCH ×3 (05:08→21:19)
[2022-05-28] MEDS ORDERED: hydrALAZINE HCL 10 MG TABLET ONE (05:11)
[2022-05-28 06:15] LABS: HEMATOCRIT 30.8 % (32.4-45.2); HEMOGLOBIN 10.1 GM/dL (10.7-15.3); MCHC 32.8 g/dl (32.0-36.0); MEAN CELL VOLUME 88.2 fl (80-96); MEAN PLT VOLUME 8.6 fl (7.5-11.1); PLATELET COUNT 230 10^3/uL (134-434); RDW 15.2 % (11.6-15.6); WHITE BLOOD COUNT 8.2 K/mm3 (4.0-10.0)
[2022-05-28 06:22] LABS: ARTERIAL BLD GAS O2 SATURATION 95.8 % (95-98); ARTERIAL BLOOD GAS BASE EXCESS -9.2 mmol/L (-2-2); ARTERIAL BLOOD GAS PO2 85.4 mmHg (80-100); ARTERIAL BLOOD GAS pH 7.312 (7.350-7.450)
[2022-05-28 06:24] LABS: ALLENS TEST POSITIVE
[2022-05-28 06:43] LABS: CHLORIDE 111 mmol/L (98-107); SODIUM 137 mmol/L (136-145)
[2022-05-28 06:45] LABS: ALBUMIN 3.3 g/dl (3.4-5.0); ANION GAP 8 MMOL/L (8-16); CALCIUM 8.8 mg/dL (8.5-10.1); CO2 18 mmol/L (21-32); GLUCOSE,RANDOM 77 mg/dL (74-106); MAGNESIUM 2.6 mg/dL (1.8-2.4)
[2022-05-28 06:48] LABS: CREATININE 4.3 mg/dL (0.55-1.3); PHOSPHOROUS 4.6 mg/dL (2.5-4.9); SGOT/AST 18 U/L (15-37); SGPT/ALT 21 U/L (13-61)
[2022-05-28 06:50] LABS: BILIRUBIN,TOTAL 0.2 mg/dL (0.2-1); TOT PROT 6.6 g/dl (6.4-8.2)
[2022-05-28 06:51] LABS: ALK PHOS 74 U/L (45-117)
[2022-05-28] MEDS: INSULIN SLIDING SCALE (NOVOLOG) 1 VIAL SQ SCH ×4 (08:09→21:39)
[2022-05-28 08:13] LABS: BLOOD UREA NITROGEN 114.8 mg/dL (7-18)
[2022-05-28] MEDS: HEPARIN NA (PORCINE) 5,000 UNITS/ML 1ML VIAL SQ SCH ×3 (08:37→21:17)
[2022-05-28] MEDS ORDERED: DEXTROSE 5%-0.45% SALINE 1,000 ML with SODIUM BICARBONATE 8.4% - 75 MEQ IV SCH ×3 (09:00→12:01)
[2022-05-28] MEDS ORDERED: SODIUM ZIRCONIUM CYCLOSILICATE (LOKELMA) 5 GM PACKET PO SCH (10:00)
[2022-05-28] MEDS ORDERED: FUROSEMIDE 40 MG/4 ML INJECTABLE VIAL IVPUSH SCH (10:00)
[2022-05-28] MEDS: amLODIPine BESYLATE 10 MG TABLET (FP) PO SCH (11:24)
[2022-05-28] MEDS: CARVEDILOL 25 MG TABLET (FP) PO SCH ×2 (11:24→21:16)
[2022-05-28] MEDS: GABAPENTIN 100 MG CAPSULE PO SCH ×2 (12:24→21:17)
[2022-05-28] MEDS: SODIUM BICARBONATE IV SCH ×2 (16:17→23:46)
[2022-05-28] MEDS: [UNRECOGNIZED DRUG - OTHER] IV SCH ×2 (16:17→23:46)
[2022-05-28] MEDS: DEXTROSE IV SCH ×2 (16:17→23:46)
[2022-05-28] MEDS: ATORVASTATIN CA 40 MG TABLET (FP) PO SCH (21:18)
[2022-05-29] MEDS: SODIUM BICARBONATE IV SCH ×2 (04:43→12:21)
[2022-05-29] MEDS: [UNRECOGNIZED DRUG - OTHER] IV SCH ×2 (04:43→12:21)
[2022-05-29] MEDS: DEXTROSE IV SCH ×2 (04:43→12:21)
[2022-05-29] MEDS: hydrALAZINE HCL 10 MG TABLET PO SCH ×3 (06:33→21:36)
[2022-05-29] MEDS: HEPARIN NA (PORCINE) 5,000 UNITS/ML 1ML VIAL SQ SCH ×3 (06:33→21:36)
[2022-05-29] MEDS: GABAPENTIN 100 MG CAPSULE PO SCH ×2 (06:33→12:21)
[2022-05-29] MEDS: INSULIN SLIDING SCALE (NOVOLOG) 1 VIAL SQ SCH ×4 (06:46→21:50)
[2022-05-29] MEDS: CARVEDILOL 25 MG TABLET (FP) PO SCH ×2 (11:24→21:36)
[2022-05-29] MEDS: amLODIPine BESYLATE 10 MG TABLET (FP) PO SCH (11:25)
[2022-05-29] MEDS: DEXTROSE 5%-0.45% SALINE 1,000 ML IV SCH (15:37)
[2022-05-29] MEDS ORDERED: DEXTROSE 50%-WATER 25 GM/50 ML DISP.SYRIN IVPUSH PRN (15:48)
[2022-05-29 17:19] LABS: BASO % 1.4 % (0-2.0); EOS % 4.9 % (0-4.5); HEMATOCRIT 28.7 % (32.4-45.2); HEMOGLOBIN 9.2 GM/dL (10.7-15.3); LYMPH % 28.3 % (8-40); MCH 28.5 pg (25.7-33.7); MCHC 32.1 g/dl (32.0-36.0); MEAN CELL VOLUME 88.7 fl (80-96); MEAN PLT VOLUME 9.5 fl (7.5-11.1); MONO % 11.9 % (3.8-10.2); NEUT % 53.5 % (42.8-82.8); PLATELET COUNT 205 10^3/uL (134-434); RBC 3.24 M/mm3 (3.60-5.2); RDW 15.1 % (11.6-15.6); RETICULOCYTES 1.64 % (0.5-1.5); WHITE BLOOD COUNT 5.2 K/mm3 (4.0-10.0)
[2022-05-29 17:53] LABS: CHLORIDE 106 mmol/L (98-107); SODIUM 135 mmol/L (136-145)
[2022-05-29 17:56] LABS: ANION GAP 9 MMOL/L (8-16); CO2 20 mmol/L (21-32); GLUCOSE,RANDOM 252 mg/dL (74-106); MAGNESIUM 2.1 mg/dL (1.8-2.4)
[2022-05-29 17:58] LABS: PHOSPHOROUS 4.8 mg/dL (2.5-4.9)
[2022-05-29 17:59] LABS: IRON SERUM 63 ug/dL (50-175); TOTAL IRON BINDING CAPACITY 293 ug/dL (250-450)
[2022-05-29] MEDS ORDERED: SODIUM CHLORIDE 1,000 ML IV SCH (18:00)
[2022-05-29 18:29] LABS: BLOOD UREA NITROGEN 104.6 mg/dL (7-18)
[2022-05-29] MEDS: INSULIN (LEVEMIR) 100 UNITS/ML UNITS SQ SCH (21:37)
[2022-05-29] MEDS: ATORVASTATIN CA 40 MG TABLET (FP) PO SCH (21:50)
[2022-05-30] MEDS: DEXTROSE 5%-0.45% SALINE 1,000 ML IV SCH (03:43)
[2022-05-30] MEDS: hydrALAZINE HCL 10 MG TABLET PO SCH ×3 (05:18→22:04)
[2022-05-30] MEDS: HEPARIN NA (PORCINE) 5,000 UNITS/ML 1ML VIAL SQ SCH ×3 (05:18→21:54)
[2022-05-30] MEDS: INSULIN (NOVOLOG MIX 70/30) 100 UNITS/ML MDV SQ SCH ×3 (06:11→16:52)
[2022-05-30] MEDS: INSULIN SLIDING SCALE (NOVOLOG) 1 VIAL SQ SCH ×4 (06:14→22:00)
[2022-05-30 09:44] LABS: HEMATOCRIT 23.9 % (32.4-45.2); HEMOGLOBIN 8.1 GM/dL (10.7-15.3); MCH 30.2 pg (25.7-33.7); MCHC 34.1 g/dl (32.0-36.0); MEAN CELL VOLUME 88.7 fl (80-96); MEAN PLT VOLUME 9.3 fl (7.5-11.1); PLATELET COUNT 182 10^3/uL (134-434); RBC 2.69 M/mm3 (3.60-5.2); WHITE BLOOD COUNT 5.2 K/mm3 (4.0-10.0)
[2022-05-30] MEDS: INSULIN (LEVEMIR) 100 UNITS/ML UNITS SQ SCH ×2 (09:57→21:58)
[2022-05-30] MEDS: CARVEDILOL 25 MG TABLET (FP) PO SCH ×2 (09:57→22:04)
[2022-05-30 10:03] LABS: CHLORIDE 108 mmol/L (98-107); SODIUM 135 mmol/L (136-145)
[2022-05-30 10:11] LABS: ANION GAP 9 MMOL/L (8-16); CO2 18 mmol/L (21-32); GLUCOSE,RANDOM 108 mg/dL (74-106); MAGNESIUM 1.9 mg/dL (1.8-2.4)
[2022-05-30 10:12] LABS: ALBUMIN 2.6 g/dl (3.4-5.0)
[2022-05-30 10:14] LABS: SGOT/AST 14 U/L (15-37); SGPT/ALT 18 U/L (13-61)
[2022-05-30 10:15] LABS: CREATININE 4.2 mg/dL (0.55-1.3); PHOSPHOROUS 5.3 mg/dL (2.5-4.9)
[2022-05-30 10:16] LABS: BILIRUBIN,TOTAL 0.3 mg/dL (0.2-1); TOT PROT 5.4 g/dl (6.4-8.2)
[2022-05-30 10:19] LABS: ALK PHOS 64 U/L (45-117)
[2022-05-30 10:30] LABS: BLOOD UREA NITROGEN 107.8 mg/dL (7-18)
[2022-05-30] MEDS: amLODIPine BESYLATE 10 MG TABLET (FP) PO SCH (11:16)
[2022-05-30] MEDS: GABAPENTIN 100 MG CAPSULE PO SCH ×3 (16:09→16:38)
[2022-05-30] MEDS ORDERED: ACETAMINOPHEN 325 MG TABLET (FP) PO PRN (20:04)
[2022-05-30] MEDS: ATORVASTATIN CA 40 MG TABLET (FP) PO SCH (21:53)
[2022-05-30] MEDS: SODIUM BICARBONATE 650 MG TABLET PO SCH (21:54)
[2022-05-31] MEDS: hydrALAZINE HCL 10 MG TABLET PO SCH ×3 (05:51→22:20)
[2022-05-31] MEDS: HEPARIN NA (PORCINE) 5,000 UNITS/ML 1ML VIAL SQ SCH (05:51)
[2022-05-31] MEDS: INSULIN (NOVOLOG MIX 70/30) 100 UNITS/ML MDV SQ SCH ×3 (06:08→17:17)
[2022-05-31] MEDS: INSULIN SLIDING SCALE (NOVOLOG) 1 VIAL SQ SCH ×4 (06:10→22:39)
[2022-05-31 08:39] LABS: CHLORIDE 108 mmol/L (98-107); SODIUM 134 mmol/L (136-145)
[2022-05-31 08:43] LABS: ANION GAP 5 MMOL/L (8-16); CO2 21 mmol/L (21-32); GLUCOSE,RANDOM 96 mg/dL (74-106); MAGNESIUM 2.1 mg/dL (1.8-2.4)
[2022-05-31 08:44] LABS: HEMATOCRIT 23.1 % (32.4-45.2); HEMOGLOBIN 7.8 GM/dL (10.7-15.3); MCH 29.6 pg (25.7-33.7); MCHC 33.8 g/dl (32.0-36.0); MEAN CELL VOLUME 87.7 fl (80-96); MEAN PLT VOLUME 9.1 fl (7.5-11.1); PLATELET COUNT 191 10^3/uL (134-434); RBC 2.64 M/mm3 (3.60-5.2); RDW 14.9 % (11.6-15.6); WHITE BLOOD COUNT 5.9 K/mm3 (4.0-10.0)
[2022-05-31 08:46] LABS: CALCIUM 8.4 mg/dL (8.5-10.1); CREATININE 4.4 mg/dL (0.55-1.3)
[2022-05-31 08:47] LABS: PHOSPHOROUS 5.5 mg/dL (2.5-4.9)
[2022-05-31 08:55] LABS: BLOOD UREA NITROGEN 119.8 mg/dL (7-18)
[2022-05-31] MEDS: SODIUM BICARBONATE 650 MG TABLET PO SCH ×2 (09:42→22:21)
[2022-05-31] MEDS: amLODIPine BESYLATE 10 MG TABLET (FP) PO SCH (09:42)
[2022-05-31] MEDS: CARVEDILOL 25 MG TABLET (FP) PO SCH ×2 (09:42→22:20)
[2022-05-31] MEDS: INSULIN (LEVEMIR) 100 UNITS/ML UNITS SQ SCH (09:43)
[2022-05-31 10:23] LABS: RETICULOCYTES 2.28 % (0.5-1.5)
[2022-05-31] MEDS: PANTOPRAZOLE SODIUM 40 MG VIAL IVPUSH SCH ×2 (11:21→22:21)
[2022-05-31] MEDS ORDERED: MAGNESIUM HYDROX 2400MG/30ML ORAL SUSPENSION 30 ML CUP PO ONE (15:00)
[2022-05-31] MEDS: POLYETHYLENE GLYCOL (HEALTHYLAX) 3350 17 GM PACKET PO SCH (22:19)
[2022-05-31] MEDS: SENNOSIDES 8.6MG TABLET (FP) PO SCH (22:20)
[2022-05-31] MEDS: ATORVASTATIN CA 40 MG TABLET (FP) PO SCH (22:21)
[2022-06-01] MEDS: hydrALAZINE HCL 10 MG TABLET PO SCH ×3 (05:47→22:18)
[2022-06-01] MEDS: INSULIN SLIDING SCALE (NOVOLOG) 1 VIAL SQ SCH ×4 (06:32→22:19)
[2022-06-01 08:55] LABS: HEMATOCRIT 25.4 % (32.4-45.2); HEMOGLOBIN 8.6 GM/dL (10.7-15.3); MCH 29.9 pg (25.7-33.7); MCHC 33.8 g/dl (32.0-36.0); MEAN CELL VOLUME 88.4 fl (80-96); PLATELET COUNT 188 10^3/uL (134-434); RBC 2.87 M/mm3 (3.60-5.2); RDW 15.2 % (11.6-15.6); WHITE BLOOD COUNT 6.4 K/mm3 (4.0-10.0)
[2022-06-01 09:04] LABS: CHLORIDE 110 mmol/L (98-107); SODIUM 136 mmol/L (136-145)
[2022-06-01 09:05] LABS: CALCIUM 8.5 mg/dL (8.5-10.1)
[2022-06-01 09:06] LABS: ANION GAP 9 MMOL/L (8-16); CO2 17 mmol/L (21-32); GLUCOSE,RANDOM 143 mg/dL (74-106); MAGNESIUM 2.2 mg/dL (1.8-2.4)
[2022-06-01 09:09] LABS: CREATININE 4.4 mg/dL (0.55-1.3); PHOSPHOROUS 5.4 mg/dL (2.5-4.9)
[2022-06-01 09:12] LABS: BLOOD UREA NITROGEN 119.2 mg/dL (7-18)
[2022-06-01] MEDS: SODIUM BICARBONATE 650 MG TABLET PO SCH ×2 (09:53→22:18)
[2022-06-01] MEDS: POLYETHYLENE GLYCOL (HEALTHYLAX) 3350 17 GM PACKET PO SCH ×2 (09:53→22:18)
[2022-06-01] MEDS: PANTOPRAZOLE SODIUM 40 MG VIAL IVPUSH SCH ×2 (09:53→22:18)
[2022-06-01] MEDS: SENNOSIDES 8.6MG TABLET (FP) PO SCH ×2 (09:53→22:18)
[2022-06-01] MEDS: amLODIPine BESYLATE 10 MG TABLET (FP) PO SCH (09:53)
[2022-06-01] MEDS: CARVEDILOL 25 MG TABLET (FP) PO SCH ×2 (09:53→22:18)
[2022-06-01] MEDS ORDERED: SODIUM CHLORIDE 0.45% 1,000 ML IV SCH (13:45)
[2022-06-01] MEDS: ATORVASTATIN CA 40 MG TABLET (FP) PO SCH (22:18)
[2022-06-02] MEDS: hydrALAZINE HCL 10 MG TABLET PO SCH ×4 (05:59→21:10)
[2022-06-02] MEDS: INSULIN SLIDING SCALE (NOVOLOG) 1 VIAL SQ SCH ×4 (06:04→21:30)
[2022-06-02] MEDS: PANTOPRAZOLE SODIUM 40 MG VIAL IVPUSH SCH ×3 (09:41→21:12)
[2022-06-02] MEDS: CARVEDILOL 25 MG TABLET (FP) PO SCH ×2 (09:41→21:10)
[2022-06-02] MEDS: SENNOSIDES 8.6MG TABLET (FP) PO SCH ×2 (09:41→21:19)
[2022-06-02] MEDS: SODIUM BICARBONATE 650 MG TABLET PO SCH ×2 (09:41→21:12)
[2022-06-02] MEDS: POLYETHYLENE GLYCOL (HEALTHYLAX) 3350 17 GM PACKET PO SCH ×2 (09:41→21:18)
[2022-06-02] MEDS: amLODIPine BESYLATE 10 MG TABLET (FP) PO SCH (09:41)
[2022-06-02] MEDS ORDERED: DEXTROSE 50%-WATER - 25 GM/50 ML VIAL IVPUSH ONE (14:56)
[2022-06-02] MEDS ORDERED: INSULIN (NOVOLOG) ASPART 100 UNITS/ML 10ML VIAL SQ ONE (14:56)
[2022-06-02] MEDS: SODIUM ZIRCONIUM CYCLOSILICATE (LOKELMA) 5 GM PACKET PO SCH (15:46)
[2022-06-02] MEDS: ATORVASTATIN CA 40 MG TABLET (FP) PO SCH (21:10)
[2022-06-03] MEDS: hydrALAZINE HCL 10 MG TABLET PO SCH ×3 (05:25→21:34)
[2022-06-03] MEDS: INSULIN SLIDING SCALE (NOVOLOG) 1 VIAL SQ SCH ×4 (08:13→22:00)
[2022-06-03 09:17] LABS: BASO % 1.4 % (0-2.0); EOS % 2.5 % (0-4.5); HEMATOCRIT 25.9 % (32.4-45.2); HEMOGLOBIN 8.7 GM/dL (10.7-15.3); LYMPH % 19.5 % (8-40); MCH 29.5 pg (25.7-33.7); MCHC 33.5 g/dl (32.0-36.0); MEAN CELL VOLUME 88.1 fl (80-96); MEAN PLT VOLUME 9.3 fl (7.5-11.1); MONO % 14.6 % (3.8-10.2); PLATELET COUNT 216 10^3/uL (134-434); RBC 2.94 M/mm3 (3.60-5.2); WHITE BLOOD COUNT 5.2 K/mm3 (4.0-10.0)
[2022-06-03 09:39] LABS: CHLORIDE 108 mmol/L (98-107); SODIUM 137 mmol/L (136-145)
[2022-06-03 09:41] LABS: ANION GAP 8 MMOL/L (8-16); CALCIUM 8.8 mg/dL (8.5-10.1); CO2 20 mmol/L (21-32); GLUCOSE,RANDOM 144 mg/dL (74-106); MAGNESIUM 2.5 mg/dL (1.8-2.4)
[2022-06-03 09:45] LABS: CREATININE 4.5 mg/dL (0.55-1.3); PHOSPHOROUS 5.5 mg/dL (2.5-4.9)
[2022-06-03] MEDS: POLYETHYLENE GLYCOL (HEALTHYLAX) 3350 17 GM PACKET PO SCH ×2 (10:30→21:34)
[2022-06-03] MEDS: PANTOPRAZOLE SODIUM 40 MG VIAL IVPUSH SCH ×2 (10:30→19:21)
[2022-06-03] MEDS: SODIUM ZIRCONIUM CYCLOSILICATE (LOKELMA) 5 GM PACKET PO SCH (10:30)
[2022-06-03] MEDS: amLODIPine BESYLATE 10 MG TABLET (FP) PO SCH (10:31)
[2022-06-03] MEDS: SODIUM BICARBONATE 650 MG TABLET PO SCH ×2 (10:31→21:39)
[2022-06-03] MEDS: CARVEDILOL 25 MG TABLET (FP) PO SCH ×2 (10:31→21:34)
[2022-06-03] MEDS: SENNOSIDES 8.6MG TABLET (FP) PO SCH ×2 (10:31→21:34)
[2022-06-03 10:45] LABS: BLOOD UREA NITROGEN 106.5 mg/dL (7-18)
[2022-06-03] MEDS ORDERED: SODIUM CHLORIDE 1,000 ML IV SCH (11:30)
[2022-06-03] MEDS: ATORVASTATIN CA 40 MG TABLET (FP) PO SCH (21:34)
[2022-06-04] MEDS: PANTOPRAZOLE SODIUM 40 MG VIAL IVPUSH SCH ×2 (00:30→10:17)
[2022-06-04] MEDS ORDERED: FUROSEMIDE 40 MG/4 ML INJECTABLE VIAL IVPUSH ONE (01:13)
[2022-06-04] MEDS ORDERED: FUROSEMIDE 40 MG TABLET (FP) PO ONE (01:17)
[2022-06-04] MEDS: hydrALAZINE HCL 10 MG TABLET PO SCH ×3 (05:48→23:09)
[2022-06-04] MEDS: INSULIN SLIDING SCALE (NOVOLOG) 1 VIAL SQ SCH ×4 (07:38→23:09)
[2022-06-04 09:21] LABS: HEMATOCRIT 21.1 % (32.4-45.2); HEMOGLOBIN 7.2 GM/dL (10.7-15.3); MCH 29.8 pg (25.7-33.7); MCHC 34.2 g/dl (32.0-36.0); MEAN CELL VOLUME 87.2 fl (80-96); MEAN PLT VOLUME 9.2 fl (7.5-11.1); PLATELET COUNT 191 10^3/uL (134-434); RBC 2.42 M/mm3 (3.60-5.2); RDW 15.2 % (11.6-15.6); WHITE BLOOD COUNT 5.3 K/mm3 (4.0-10.0)
[2022-06-04 09:38] LABS: CHLORIDE 108 mmol/L (98-107); SODIUM 137 mmol/L (136-145)
[2022-06-04 09:42] LABS: ALBUMIN 2.7 g/dl (3.4-5.0); ANION GAP 8 MMOL/L (8-16); CALCIUM 8.4 mg/dL (8.5-10.1); CO2 20 mmol/L (21-32); GLUCOSE,RANDOM 160 mg/dL (74-106); MAGNESIUM 2.2 mg/dL (1.8-2.4)
[2022-06-04 09:45] LABS: BILIRUBIN,TOTAL 0.4 mg/dL (0.2-1); CREATININE 4.5 mg/dL (0.55-1.3); SGOT/AST 27 U/L (15-37); SGPT/ALT 57 U/L (13-61); TOT PROT 5.6 g/dl (6.4-8.2)
[2022-06-04 09:46] LABS: ALK PHOS 85 U/L (45-117)
[2022-06-04 09:47] LABS: BLOOD UREA NITROGEN 112.9 mg/dL (7-18)
[2022-06-04] MEDS: amLODIPine BESYLATE 10 MG TABLET (FP) PO SCH (11:07)
[2022-06-04] MEDS: CARVEDILOL 25 MG TABLET (FP) PO SCH ×2 (11:07→23:08)
[2022-06-04] MEDS: POLYETHYLENE GLYCOL (HEALTHYLAX) 3350 17 GM PACKET PO SCH ×2 (11:07→23:08)
[2022-06-04] MEDS: SODIUM BICARBONATE 650 MG TABLET PO SCH ×2 (11:07→23:08)
[2022-06-04] MEDS: SENNOSIDES 8.6MG TABLET (FP) PO SCH ×2 (11:07→23:09)
[2022-06-04] MEDS: SODIUM ZIRCONIUM CYCLOSILICATE (LOKELMA) 5 GM PACKET PO SCH (11:07)
[2022-06-04] MEDS: ATORVASTATIN CA 40 MG TABLET (FP) PO SCH (23:09)
[2022-06-05] MEDS: hydrALAZINE HCL 10 MG TABLET PO SCH ×3 (05:36→21:12)
[2022-06-05] MEDS: INSULIN SLIDING SCALE (NOVOLOG) 1 VIAL SQ SCH ×4 (06:59→21:20)
[2022-06-05] MEDS: PANTOPRAZOLE SODIUM 40 MG VIAL IVPUSH SCH (07:35)
[2022-06-05 09:44] LABS: CHLORIDE 108 mmol/L (98-107); SODIUM 136 mmol/L (136-145)
[2022-06-05 09:47] LABS: ANION GAP 9 MMOL/L (8-16); CALCIUM 8.7 mg/dL (8.5-10.1); CO2 19 mmol/L (21-32); GLUCOSE,RANDOM 144 mg/dL (74-106); MAGNESIUM 2.1 mg/dL (1.8-2.4)
[2022-06-05 09:50] LABS: CREATININE 4.6 mg/dL (0.55-1.3); SGOT/AST 32 U/L (15-37); SGPT/ALT 75 U/L (13-61)
[2022-06-05 09:51] LABS: PHOSPHOROUS 6.2 mg/dL (2.5-4.9)
[2022-06-05 09:52] LABS: BILIRUBIN,TOTAL 0.6 mg/dL (0.2-1); TOT PROT 6.3 g/dl (6.4-8.2)
[2022-06-05 09:53] LABS: ALK PHOS 111 U/L (45-117)
[2022-06-05 09:58] LABS: BLOOD UREA NITROGEN 106.5 mg/dL (7-18)
[2022-06-05] MEDS ORDERED: FUROSEMIDE 40 MG/4 ML INJECTABLE VIAL IVPUSH SCH (10:00)
[2022-06-05] MEDS: SODIUM ZIRCONIUM CYCLOSILICATE (LOKELMA) 5 GM PACKET PO SCH (10:15)
[2022-06-05] MEDS: SENNOSIDES 8.6MG TABLET (FP) PO SCH ×2 (10:15→21:11)
[2022-06-05] MEDS: SODIUM BICARBONATE 650 MG TABLET PO SCH ×2 (10:15→21:12)
[2022-06-05] MEDS: amLODIPine BESYLATE 10 MG TABLET (FP) PO SCH (10:15)
[2022-06-05] MEDS: CARVEDILOL 25 MG TABLET (FP) PO SCH ×2 (10:15→21:12)
[2022-06-05] MEDS: POLYETHYLENE GLYCOL (HEALTHYLAX) 3350 17 GM PACKET PO SCH ×2 (10:15→21:12)
[2022-06-05] MEDS: PANTOPRAZOLE 40 MG TABLET PO SCH (10:26)
[2022-06-05] MEDS ORDERED: FUROSEMIDE 40 MG TABLET (FP) PO ONE (10:32)
[2022-06-05 11:24] LABS: HEMATOCRIT 24.2 % (32.4-45.2); MCH 29.3 pg (25.7-33.7); MCHC 33.1 g/dl (32.0-36.0); MEAN CELL VOLUME 88.7 fl (80-96); MEAN PLT VOLUME 9.3 fl (7.5-11.1); PLATELET COUNT 202 10^3/uL (134-434); RBC 2.73 M/mm3 (3.60-5.2); RDW 15.2 % (11.6-15.6); WHITE BLOOD COUNT 5.4 K/mm3 (4.0-10.0)
[2022-06-05] MEDS: SEVELAMER CARBONATE 800 MG TAB (FP) PO SCH ×2 (12:09→17:38)
[2022-06-05] MEDS: ATORVASTATIN CA 40 MG TABLET (FP) PO SCH (21:11)
[2022-06-05] MEDS: HEPARIN NA (PORCINE) 5,000 UNITS/ML 1ML VIAL SQ SCH (21:12)
[2022-06-06] MEDS: hydrALAZINE HCL 10 MG TABLET PO SCH ×3 (05:48→21:52)
[2022-06-06] MEDS: INSULIN SLIDING SCALE (NOVOLOG) 1 VIAL SQ SCH ×4 (06:17→22:00)
[2022-06-06] MEDS: SEVELAMER CARBONATE 800 MG TAB (FP) PO SCH ×3 (08:06→17:46)
[2022-06-06] MEDS: amLODIPine BESYLATE 10 MG TABLET (FP) PO SCH (09:22)
[2022-06-06] MEDS: PANTOPRAZOLE 40 MG TABLET PO SCH (09:22)
[2022-06-06] MEDS: SENNOSIDES 8.6MG TABLET (FP) PO SCH ×2 (09:23→21:51)
[2022-06-06] MEDS: SODIUM BICARBONATE 650 MG TABLET PO SCH ×2 (09:23→21:52)
[2022-06-06] MEDS: POLYETHYLENE GLYCOL (HEALTHYLAX) 3350 17 GM PACKET PO SCH ×2 (09:23→21:58)
[2022-06-06] MEDS: HEPARIN NA (PORCINE) 5,000 UNITS/ML 1ML VIAL SQ SCH ×2 (09:23→21:51)
[2022-06-06] MEDS: CARVEDILOL 25 MG TABLET (FP) PO SCH ×2 (09:29→21:52)
[2022-06-06] MEDS: SODIUM ZIRCONIUM CYCLOSILICATE (LOKELMA) 5 GM PACKET PO SCH (09:31)
[2022-06-06] MEDS: FUROSEMIDE 40 MG TABLET (FP) PO SCH (12:47)
[2022-06-06 18:04] LABS: CALCIUM 8.6 mg/dL (8.5-10.1)
[2022-06-06 18:05] LABS: ALBUMIN 3.1 g/dl (3.4-5.0)
[2022-06-06 18:08] LABS: CREATININE 4.5 mg/dL (0.55-1.3)
[2022-06-06 18:09] LABS: BILIRUBIN,TOTAL 0.3 mg/dL (0.2-1); TOT PROT 6.4 g/dl (6.4-8.2)
[2022-06-06] MEDS: ATORVASTATIN CA 40 MG TABLET (FP) PO SCH (21:52)
[2022-06-07] MEDS: hydrALAZINE HCL 10 MG TABLET PO SCH ×2 (06:38→14:36)
[2022-06-07] MEDS: INSULIN SLIDING SCALE (NOVOLOG) 1 VIAL SQ SCH ×2 (06:39→12:20)
[2022-06-07] MEDS: SEVELAMER CARBONATE 800 MG TAB (FP) PO SCH ×2 (08:23→12:24)
[2022-06-07 09:17] LABS: BASO % 0.8 % (0-2.0); EOS % 3.5 % (0-4.5); HEMOGLOBIN 7.2 GM/dL (10.7-15.3); LYMPH % 18.2 % (8-40); MCH 28.3 pg (25.7-33.7); MCHC 32.9 g/dl (32.0-36.0); MEAN CELL VOLUME 86.2 fl (80-96); MEAN PLT VOLUME 9.1 fl (7.5-11.1); MONO % 16.4 % (3.8-10.2); NEUT % 61.1 % (42.8-82.8); PLATELET COUNT 190 10^3/uL (134-434); RBC 2.55 M/mm3 (3.60-5.2); RDW 15.2 % (11.6-15.6); WHITE BLOOD COUNT 4.6 K/mm3 (4.0-10.0)
[2022-06-07] MEDS: FUROSEMIDE 40 MG TABLET (FP) PO SCH (09:38)
[2022-06-07] MEDS: HEPARIN NA (PORCINE) 5,000 UNITS/ML 1ML VIAL SQ SCH (09:38)
[2022-06-07] MEDS: POLYETHYLENE GLYCOL (HEALTHYLAX) 3350 17 GM PACKET PO SCH (09:38)
[2022-06-07] MEDS: PANTOPRAZOLE 40 MG TABLET PO SCH (09:38)
[2022-06-07] MEDS: SENNOSIDES 8.6MG TABLET (FP) PO SCH (09:38)
[2022-06-07] MEDS: CARVEDILOL 25 MG TABLET (FP) PO SCH (09:38)
[2022-06-07] MEDS: amLODIPine BESYLATE 10 MG TABLET (FP) PO SCH (09:38)
[2022-06-07] MEDS: SODIUM ZIRCONIUM CYCLOSILICATE (LOKELMA) 5 GM PACKET PO SCH (09:38)
[2022-06-07] MEDS: SODIUM BICARBONATE 650 MG TABLET PO SCH (09:38)
[2022-06-07 09:42] LABS: ALBUMIN 2.8 g/dl (3.4-5.0); CALCIUM 8.4 mg/dL (8.5-10.1)
[2022-06-07 09:43] LABS: MAGNESIUM 2.2 mg/dL (1.8-2.4)
[2022-06-07 09:45] LABS: CREATININE 4.5 mg/dL (0.55-1.3)
[2022-06-07 09:46] LABS: PHOSPHOROUS 5.6 mg/dL (2.5-4.9)
[2022-06-07 09:47] LABS: BILIRUBIN,TOTAL 0.4 mg/dL (0.2-1); TOT PROT 5.7 g/dl (6.4-8.2)
[2022-06-07 09:50] LABS: BLOOD UREA NITROGEN 97.8 mg/dL (7-18)
[2022-06-07] MEDS ORDERED: EPOETIN ALFA-EPBX 10,000 UNIT/ML VIAL SQ ONE (14:58)
[2022-06-07 16:09] VITALS: BP 129/54; PULSE 62; RESP 18; TEMP 97.4
== END 2022-06-07 16:41 | disposition home or self-care (01) | DRG 644 ==
LOC: JER 18:50 → JERBED 05-28 00:01 → J5S 05-28 09:18
PROVIDERS: ADMIT Internal Medicine; ATTEND Internal Medicine
DX: E16.0 Drug-induced hypoglycemia without coma (principal); E87.20 Acidosis, unspecified; I13.0 Hypertensive heart and chronic kidney disease with heart failure and stage 1 through stage 4 chronic kidney disease, or unspecified chronic kidney disease; J98.11 Atelectasis; N18.4 Chronic kidney disease, stage 4 (severe); T38.3X5A Adverse effect of insulin and oral hypoglycemic [antidiabetic] drugs, initial encounter; F03.90 Unspecified dementia, unspecified severity, without behavioral disturbance, psychotic disturbance, mood disturbance, and anxiety; E11.649 Type 2 diabetes mellitus with hypoglycemia without coma; E11.22 Type 2 diabetes mellitus with diabetic chronic kidney disease; J44.9 Chronic obstructive pulmonary disease, unspecified; E78.5 Hyperlipidemia, unspecified; E87.5 Hyperkalemia; Y92.89 Other specified places as the place of occurrence of the external cause; K59.00 Constipation, unspecified; I50.9 Heart failure, unspecified
CPT/HCPCS: 0241U-QW; 36415; 36600; 71045-TC-FY; 71046-TC-FY; 76775-TC; 80048; 80053; 81003; 82436; 82570; 82607; 82728; 82746; 82803; 82962; 83036; 83540; 83550; 83605; 83735; 83935; 84100; 84132; 84133; 84156; 84300; 84484; 85025; 85027; 85045; 86850; 86900; 86901; 87086; 93005; 93010; 93306-TC; 97116-GP; 97161-GP; 99285-25; J1644

== ENCOUNTER 2022-09-06 12:01 | Observation (INO) | payer OTHER ==
[2022-09-06 12:22] VITALS: BMI 27.1
[2022-09-06 14:57] LABS: BASO % 2.1 % (0-2.0); HEMATOCRIT 38.4 % (32.4-45.2); HEMOGLOBIN 12.7 GM/dL (10.7-15.3); MCH 28.7 pg (25.7-33.7); MCHC 33.1 g/dl (32.0-36.0); MEAN CELL VOLUME 86.6 fl (80-96); MEAN PLT VOLUME 8.8 fl (7.5-11.1); MONO % 14.4 % (3.8-10.2); NEUT % 32.5 % (42.8-82.8); PLATELET COUNT 165 10^3/uL (134-434); RBC 4.43 M/mm3 (3.60-5.2); RDW 15.8 % (11.6-15.6); WHITE BLOOD COUNT 2.9 K/mm3 (4.0-10.0)
[2022-09-06 15:03] LABS: INR 1.03 (0.83-1.09); PROTHROMBIN TIME (PATIENT) 11.9 SEC (9.7-13.0)
[2022-09-06 15:05] LABS: ACTIVATED PTT 33.9 SECONDS (25.2-36.5)
[2022-09-06 15:21] LABS: MAGNESIUM 2.1 mg/dL (1.8-2.4); POTASSIUM 3.6 mmol/L (3.5-5.1)
[2022-09-06 15:24] LABS: CALCIUM 9.2 mg/dL (8.5-10.1)
[2022-09-06 15:25] LABS: ALBUMIN 3.4 g/dl (3.4-5.0); BLOOD UREA NITROGEN 21.9 mg/dL (7-18)
[2022-09-06 15:28] LABS: BILIRUBIN,TOTAL 0.5 mg/dL (0.2-1); CREATININE 2.4 mg/dL (0.55-1.3); TOT PROT 6.5 g/dl (6.4-8.2)
[2022-09-06 19:12] LABS: EPI CELLS >36 /uL (0-25.1); HYALINE CASTS 1 /uL (0-3.1); PH,URINE 5.5 (5.0-8.0); URINE APPEARANCE CLEAR; URINE BACTERIA 359 /uL (0-1359); URINE BILIRUBIN NEGATIVE (NEGATIVE); URINE COLOR YELLOW; URINE GLUCOSE (UA) NEGATIVE (NEGATIVE); URINE KETONE NEGATIVE (NEGATIVE); URINE LEUK ESTERASE NEGATIVE (NEGATIVE); URINE NITRITE NEGATIVE (NEGATIVE); URINE PROTEIN 4+ (NEGATIVE); URINE UROBILINOGEN 0.2 mg/dL (0.2-1.0); URINE WBC 32 /uL (0-25.8)
[2022-09-06 19:16] LABS: URINE RBC 30.2 /uL (0-23.9)
[2022-09-06] MEDS ORDERED: ATORVASTATIN CA 40 MG TABLET (FP) ONE (20:59)
[2022-09-06] MEDS ORDERED: CARVEDILOL 25 MG TABLET (FP) ONE (20:59)
[2022-09-06] MEDS ORDERED: hydrALAZINE HCL 25 MG TABLET (FP) ONE (20:59)
[2022-09-06] MEDS: hydrALAZINE HCL 25 MG TABLET (FP) PO SCH (21:13)
[2022-09-06] MEDS: ATORVASTATIN CA 40 MG TABLET (FP) PO SCH (21:13)
[2022-09-06] MEDS: CARVEDILOL 25 MG TABLET (FP) PO SCH (21:13)
[2022-09-06] MEDS: INSULIN SLIDING SCALE (NOVOLOG) 1 VIAL SQ SCH (21:13)
[2022-09-07] MEDS: hydrALAZINE HCL 25 MG TABLET (FP) PO SCH ×3 (06:18→21:52)
[2022-09-07] MEDS: INSULIN SLIDING SCALE (NOVOLOG) 1 VIAL SQ SCH ×3 (06:20→17:15)
[2022-09-07 06:39] LABS: BASO % 2.1 % (0-2.0); EOS % 6.3 % (0-4.5); HEMATOCRIT 37.2 % (32.4-45.2); HEMOGLOBIN 12.6 GM/dL (10.7-15.3); LYMPH % 34.9 % (8-40); MCH 29.1 pg (25.7-33.7); MCHC 33.8 g/dl (32.0-36.0); MEAN CELL VOLUME 86.2 fl (80-96); MEAN PLT VOLUME 8.9 fl (7.5-11.1); MONO % 15.5 % (3.8-10.2); NEUT % 41.2 % (42.8-82.8); PLATELET COUNT 154 10^3/uL (134-434); RBC 4.31 M/mm3 (3.60-5.2); RDW 15.9 % (11.6-15.6); WHITE BLOOD COUNT 3.4 K/mm3 (4.0-10.0)
[2022-09-07 06:57] LABS: POTASSIUM 3.7 mmol/L (3.5-5.1)
[2022-09-07 07:03] LABS: CALCIUM 9.4 mg/dL (8.5-10.1)
[2022-09-07 07:04] LABS: ALBUMIN 3.2 g/dl (3.4-5.0); BLOOD UREA NITROGEN 29.2 mg/dL (7-18); MAGNESIUM 2.1 mg/dL (1.8-2.4)
[2022-09-07 07:05] LABS: PHOSPHOROUS 3.1 mg/dL (2.5-4.9)
[2022-09-07 07:06] LABS: BILIRUBIN,TOTAL 0.4 mg/dL (0.2-1); TOT PROT 6.1 g/dl (6.4-8.2)
[2022-09-07 07:07] LABS: CREATININE 2.6 mg/dL (0.55-1.3)
[2022-09-07] MEDS ORDERED: SODIUM CHLORIDE 250 ML IV PRN (07:46)
[2022-09-07] MEDS: FUROSEMIDE 20 MG TABLET (FP) PO SCH (10:05)
[2022-09-07] MEDS: amLODIPine BESYLATE 10 MG TABLET (FP) PO SCH (10:06)
[2022-09-07] MEDS: CARVEDILOL 25 MG TABLET (FP) PO SCH ×2 (10:06→21:52)
[2022-09-07] MEDS: SERTRALINE HCL 50 MG TABLET (FP) PO SCH (10:06)
[2022-09-07] MEDS: ATORVASTATIN CA 40 MG TABLET (FP) PO SCH (21:52)
[2022-09-08] MEDS ORDERED: INSULIN SLIDING SCALE (NOVOLOG) 1 VIAL SQ ONE (00:05)
[2022-09-08] MEDS: INSULIN SLIDING SCALE (NOVOLOG) 1 VIAL SQ SCH ×3 (00:19→12:13)
[2022-09-08] MEDS: hydrALAZINE HCL 25 MG TABLET (FP) PO SCH ×2 (05:27→13:25)
[2022-09-08] MEDS: FUROSEMIDE 20 MG TABLET (FP) PO SCH (09:52)
[2022-09-08] MEDS: CARVEDILOL 25 MG TABLET (FP) PO SCH (09:52)
[2022-09-08] MEDS: SERTRALINE HCL 50 MG TABLET (FP) PO SCH (09:52)
[2022-09-08] MEDS: amLODIPine BESYLATE 10 MG TABLET (FP) PO SCH (09:52)
[2022-09-08] MEDS ORDERED: POLYETHYLENE GLYCOL (HEALTHYLAX) 3350 17 GM PACKET PO SCH (10:00)
[2022-09-08 13:25] VITALS: BP 144/61; PULSE 60; RESP 16; TEMP 97.9
== END 2022-09-08 14:56 | disposition home or self-care (01) ==
LOC: JER 12:01 → JERBED 15:46 → J4S 22:54
PROVIDERS: ADMIT Internal Medicine; ATTEND Internal Medicine
PROC: 3E033NZ Introduction of Analgesics, Hypnotics, Sedatives into Peripheral Vein, Percutaneous Approach (ICD-10-PCS; principal; 2022-09-06)
PROC: 3E0337Z Introduction of Electrolytic and Water Balance Substance into Peripheral Vein, Percutaneous Approach (ICD-10-PCS; 2022-09-06)
DX: R74.8 Abnormal levels of other serum enzymes (principal); R53.1 Weakness; E11.22 Type 2 diabetes mellitus with diabetic chronic kidney disease; I12.0 Hypertensive chronic kidney disease with stage 5 chronic kidney disease or end stage renal disease; N18.6 End stage renal disease; Z99.2 Dependence on renal dialysis; J44.9 Chronic obstructive pulmonary disease, unspecified; R10.9 Unspecified abdominal pain; E78.5 Hyperlipidemia, unspecified; I44.7 Left bundle-branch block, unspecified; D72.829 Elevated white blood cell count, unspecified; F03.90 Unspecified dementia, unspecified severity, without behavioral disturbance, psychotic disturbance, mood disturbance, and anxiety; Z85.038 Personal history of other malignant neoplasm of large intestine; Z86.16 Personal history of COVID-19; Z95.0 Presence of cardiac pacemaker; Z86.73 Personal history of transient ischemic attack (TIA), and cerebral infarction without residual deficits
CPT/HCPCS: 0241U-QW; 36415; 71045-TC-FY; 74018-TC-FY; 80053; 81003; 82962; 83735; 84100; 84484; 85025; 85610; 85730; 86803; 87040; 87086; 87340; 93005; 93010; 96372; 99284-25; G0378

== ENCOUNTER 2022-12-06 12:19 | Emergency (ER) | payer OTHER ==
[2022-12-06 12:38] VITALS: RESP 18; BMI 25.1
[2022-12-06] MEDS ORDERED: ACETAMINOPHEN 1000 MG/100 ML BAG IVPB ONE (13:31)
[2022-12-06] MEDS ORDERED: METOCLOPRAMIDE HCL INJECTION 10 MG/2 ML VIAL IVPUSH ONE (13:51)
[2022-12-06] MEDS ORDERED: ACETAMINOPHEN INJECTION 100 ML IVPB ONE (15:07)
[2022-12-06] MEDS ORDERED: METOCLOPRAMIDE HCL INJECTION 10 MG/2 ML VIAL ONE (15:07)
[2022-12-06 15:37] LABS: BASO % 1.4 % (0-2.0); EOS % 3.6 % (0-4.5); HEMATOCRIT 36.5 % (32.4-45.2); HEMOGLOBIN 11.8 GM/dL (10.7-15.3); LYMPH % 29.8 % (8-40); MCH 28.9 pg (25.7-33.7); MCHC 32.4 g/dl (32.0-36.0); MEAN PLT VOLUME 8.4 fl (7.5-11.1); MONO % 13.5 % (3.8-10.2); NEUT % 51.7 % (42.8-82.8); PLATELET COUNT 205 10^3/uL (134-434); WHITE BLOOD COUNT 3.8 K/mm3 (4.0-10.0)
[2022-12-06 15:54] VITALS: BP 141/60; PULSE 60; TEMP 98
[2022-12-06 16:09] LABS: POTASSIUM 5.3 mmol/L (3.5-5.1)
[2022-12-06 16:11] LABS: ALBUMIN 3.2 g/dl (3.4-5.0); BLOOD UREA NITROGEN 59.2 mg/dL (7-18); CALCIUM 8.9 mg/dL (8.5-10.1)
[2022-12-06 16:14] LABS: CREATININE 3.8 mg/dL (0.55-1.3)
[2022-12-06 16:16] LABS: BILIRUBIN,TOTAL 0.5 mg/dL (0.2-1); TOT PROT 6.5 g/dl (6.4-8.2)
== END 2022-12-06 17:20 | disposition home or self-care (01) ==
LOC: JER 12:19
PROC: 3E033NZ Introduction of Analgesics, Hypnotics, Sedatives into Peripheral Vein, Percutaneous Approach (ICD-10-PCS; principal; 2022-12-06)
PROC: 3E033GC Introduction of Other Therapeutic Substance into Peripheral Vein, Percutaneous Approach (ICD-10-PCS; 2022-12-06)
DX: R51.9 Headache, unspecified (principal)
CPT/HCPCS: 36415; 70450-TC; 80053; 85025; 99284-25

== ENCOUNTER 2023-01-02 11:10 | Observation (INO) | payer OTHER ==
[2023-01-02 11:42] VITALS: RESP 18
[2023-01-02] MEDS ORDERED: ACETAMINOPHEN 325 MG TABLET (FP) PO ONE (12:32)
[2023-01-02] MEDS ORDERED: ACETAMINOPHEN 325 MG TABLET (FP) ONE (12:49)
[2023-01-02] MEDS ORDERED: VANCOMYCIN 1,000 MG in DEXTROSE 5%-WATER - 250 ML IVPB ONE (14:42)
[2023-01-02 17:07] LABS: EPI CELLS 18 /uL (0-25.1); HYALINE CASTS 0 /uL (0-3.1); URINE APPEARANCE CLEAR; URINE BACTERIA 157 /uL (0-1359); URINE BILIRUBIN NEGATIVE (NEGATIVE); URINE COLOR YELLOW; URINE GLUCOSE (UA) NEGATIVE (NEGATIVE); URINE KETONE NEGATIVE (NEGATIVE); URINE LEUK ESTERASE NEGATIVE (NEGATIVE); URINE NITRITE NEGATIVE (NEGATIVE); URINE PROTEIN 3+ (NEGATIVE); URINE RBC 11 /uL (0-23.9); URINE UROBILINOGEN 0.2 mg/dL (0.2-1.0); URINE WBC 10 /uL (0-25.8)
[2023-01-02] MEDS ORDERED: VANCOMYCIN 1 GRAM (PRE-DOCKED) 1,000 MG/250 ML BAG IVPB ONE (18:03)
[2023-01-02 18:06] LABS: BASO % 2.5 % (0-2.0); EOS % 3.2 % (0-4.5); HEMATOCRIT 40.4 % (32.4-45.2); HEMOGLOBIN 13.7 GM/dL (10.7-15.3); LYMPH % 36.6 % (8-40); MCH 30.3 pg (25.7-33.7); MCHC 33.9 g/dl (32.0-36.0); MEAN CELL VOLUME 89.2 fl (80-96); MONO % 13.9 % (3.8-10.2); NEUT % 43.8 % (42.8-82.8); PLATELET COUNT 211 10^3/uL (134-434); RBC 4.53 M/mm3 (3.60-5.2); RDW 16.3 % (11.6-15.6); WHITE BLOOD COUNT 3.8 K/mm3 (4.0-10.0)
[2023-01-02 18:27] LABS: POTASSIUM 4.1 mmol/L (3.5-5.1)
[2023-01-02 18:29] LABS: ALBUMIN 3.7 g/dl (3.4-5.0); BLOOD UREA NITROGEN 46.9 mg/dL (7-18); CALCIUM 9.2 mg/dL (8.5-10.1); MAGNESIUM 2.1 mg/dL (1.8-2.4)
[2023-01-02 18:32] LABS: CREATININE 3.4 mg/dL (0.55-1.3); PHOSPHOROUS 3.7 mg/dL (2.5-4.9)
[2023-01-02 18:34] LABS: BILIRUBIN,TOTAL 0.4 mg/dL (0.2-1); TOT PROT 7.5 g/dl (6.4-8.2)
[2023-01-03 01:26] VITALS: BMI 24.5
[2023-01-03] MEDS: hydrALAZINE HCL 25 MG TABLET (FP) PO SCH ×3 (02:04→13:14)
[2023-01-03] MEDS: HEPARIN NA (PORCINE) 5,000 UNITS/ML 1ML VIAL SQ SCH ×2 (06:29→13:14)
[2023-01-03] MEDS: INSULIN SLIDING SCALE (NOVOLOG) 1 VIAL SQ SCH ×3 (06:40→16:28)
[2023-01-03] MEDS ORDERED: SODIUM CHLORIDE 250 ML IV PRN ×2 (08:00→13:57)
[2023-01-03] MEDS ORDERED: SERTRALINE HCL 50 MG TABLET (FP) PO SCH (10:00)
[2023-01-03] MEDS ORDERED: amLODIPine BESYLATE 10 MG TABLET (FP) PO SCH (10:00)
[2023-01-03] MEDS ORDERED: ASPIRIN COATED 81 MG TABLET.EC PO SCH (10:00)
[2023-01-03] MEDS ORDERED: LIDOCAINE 5% TOPICAL PATCH TP SCH (10:00)
[2023-01-03 10:20] LABS: HEMATOCRIT 35.5 % (32.4-45.2); HEMOGLOBIN 11.7 GM/dL (10.7-15.3); MCH 30.1 pg (25.7-33.7); MEAN CELL VOLUME 91.3 fl (80-96); MEAN PLT VOLUME 8.5 fl (7.5-11.1); PLATELET COUNT 196 10^3/uL (134-434); RBC 3.89 M/mm3 (3.60-5.2); RDW 16.2 % (11.6-15.6); WHITE BLOOD COUNT 4.9 K/mm3 (4.0-10.0)
[2023-01-03 10:47] LABS: ALBUMIN 3.2 g/dl (3.4-5.0); CALCIUM 8.8 mg/dL (8.5-10.1)
[2023-01-03 10:49] LABS: MAGNESIUM 2.1 mg/dL (1.8-2.4)
[2023-01-03 10:50] LABS: CREATININE 3.5 mg/dL (0.55-1.3); PHOSPHOROUS 3.7 mg/dL (2.5-4.9)
[2023-01-03 10:52] LABS: BILIRUBIN,TOTAL 0.4 mg/dL (0.2-1); TOT PROT 6.4 g/dl (6.4-8.2)
[2023-01-03 14:31] VITALS: BP 186/86; PULSE 71; TEMP 99.1
[2023-01-03] MEDS ORDERED: LIDOCAINE PATCH REMOVAL MC SCH (22:00)
[2023-01-03] MEDS ORDERED: ATORVASTATIN CA 40 MG TABLET (FP) PO SCH (22:00)
== END 2023-01-03 18:25 | disposition home or self-care (01) ==
LOC: JER 11:10 → JERBED 19:42 → J6S 01-03 00:42
PROVIDERS: ADMIT Internal Medicine; ATTEND Internal Medicine
PROC: 3E023GC Introduction of Other Therapeutic Substance into Muscle, Percutaneous Approach (ICD-10-PCS; principal; 2023-01-02)
PROC: 3E03329 Introduction of Other Anti-infective into Peripheral Vein, Percutaneous Approach (ICD-10-PCS; 2023-01-02)
DX: I12.0 Hypertensive chronic kidney disease with stage 5 chronic kidney disease or end stage renal disease (principal); S90.31XA Contusion of right foot, initial encounter; N18.6 End stage renal disease; M54.50 Low back pain, unspecified; Z99.2 Dependence on renal dialysis; E11.9 Type 2 diabetes mellitus without complications; M54.9 Dorsalgia, unspecified; X58.XXXA Exposure to other specified factors, initial encounter; G89.29 Other chronic pain; Y92.9 Unspecified place or not applicable; J44.9 Chronic obstructive pulmonary disease, unspecified; Z91.199 Patient's noncompliance with other medical treatment and regimen due to unspecified reason; Z85.038 Personal history of other malignant neoplasm of large intestine; K59.00 Constipation, unspecified; N28.9 Disorder of kidney and ureter, unspecified; K92.9 Disease of digestive system, unspecified
CPT/HCPCS: 36415; 72131-TC; 73630-TC-RT-FY; 80053; 81003; 82962; 83735; 84100; 85025; 85027; 85730; 86704; 86803; 87086; 87340; 87517; 93005; 93010; 96365; 96372; 97116-GP; 97162-GP; 99285-25; G0378; J1644

== ENCOUNTER 2023-03-18 11:47 | Emergency (ER) | payer OTHER ==
[2023-03-18 12:21] VITALS: BP 162/75; PULSE 60; RESP 20; TEMP 98.1; BMI 24.5
[2023-03-18] MEDS ORDERED: LIDOCAINE 4% PATCH TP ONE ×2 (12:44→13:02)
[2023-03-18] MEDS ORDERED: ACETAMINOPHEN 500 MG TABLET (FP) PO ONE (12:44)
[2023-03-18] MEDS ORDERED: ACETAMINOPHEN 500 MG TABLET (FP) ONE (13:03)
[2023-03-18] MEDS ORDERED: LIDOCAINE PATCH REMOVAL MC ONE (22:00)
== END 2023-03-18 14:51 | disposition home or self-care (01) ==
LOC: JER 11:47
DX: M54.50 Low back pain, unspecified (principal); G89.29 Other chronic pain
CPT/HCPCS: 72100-TC-FY; 99283-25

== ENCOUNTER 2023-04-23 04:22 | Day surgery (SDC) | payer OTHER ==
[2023-04-15 09:37] VITALS: BMI 29.2
[~2023-04-23 04:22] MED LIST: ACETAMINOPHEN 500 MG TABLET (FP) PO PRN
[2023-04-23] MEDS ORDERED: BUPIVACAINE HCL/PF 0.75% 10 ML VIAL ONE (07:59)
[2023-04-23] MEDS ORDERED: LIDOCAINE HCL/PF 1% SDV 5ML VIAL ONE ×2 (08:00)
[2023-04-23] MEDS ORDERED: ACETAMINOPHEN 500 MG TABLET (FP) PO PRN (10:30)
[2023-04-23 10:50] VITALS: RESP 20
[2023-04-23] MEDS ORDERED: LIDOCAINE HCL 1% PRESERVATIVE FREE - 30ML VIAL IJ ONE (11:43)
[2023-04-23] MEDS ORDERED: BUPIVACAINE HCL/PF 0.75% 10 ML VIAL NR ONE (11:48)
[2023-04-23 12:28] VITALS: TEMP 98.6
[2023-04-23 13:08] VITALS: BP 154/76; PULSE 65
== END 2023-04-23 13:05 | disposition home or self-care (01) ==
LOC: JASU-SURG 04:22
PROVIDERS: ATTEND Pain Medicine Pain Medicine
PROC: 3E0T33Z Introduction of Anti-inflammatory into Peripheral Nerves and Plexi, Percutaneous Approach (ICD-10-PCS; 2023-04-23)
PROC: 3E0T3BZ Introduction of Anesthetic Agent into Peripheral Nerves and Plexi, Percutaneous Approach (ICD-10-PCS; principal; 2023-04-23 12:00)
DX: M47.816 Spondylosis without myelopathy or radiculopathy, lumbar region (principal)
CPT/HCPCS: 76000-TC-FY

== ENCOUNTER 2023-05-22 01:06 | Inpatient (IN) | payer OTHER ==
[2023-05-22 01:44] VITALS: BMI 23.8
[2023-05-22] MEDS ORDERED: ACETAMINOPHEN 325 MG TABLET (FP) ONE (01:53)
[2023-05-22] MEDS: ACETAMINOPHEN 325 MG TABLET (FP) PO ONE (02:52)
[2023-05-22 04:27] LABS: CHLORIDE 104 mmol/L (98-107); SODIUM 139 mmol/L (136-145)
[2023-05-22 04:29] LABS: CALCIUM 9.7 mg/dL (8.5-10.1); GLUCOSE,RANDOM 81 mg/dL (74-106)
[2023-05-22 04:30] LABS: ALBUMIN 3.8 g/dl (3.4-5.0); BLOOD UREA NITROGEN 70.9 mg/dL (7-18); CO2 24 mmol/L (21-32); MAGNESIUM 2.5 mg/dL (1.8-2.4)
[2023-05-22 04:32] LABS: PHOSPHOROUS 5.4 mg/dL (2.5-4.9); SGPT/ALT 22 U/L (13-61)
[2023-05-22 04:33] LABS: CREATININE 4.7 mg/dL (0.55-1.3); SGOT/AST 56 U/L (15-37)
[2023-05-22 04:34] LABS: BILIRUBIN,TOTAL 0.5 mg/dL (0.2-1); TOT PROT 8.5 g/dl (6.4-8.2)
[2023-05-22 04:35] LABS: ALK PHOS 83 U/L (45-117)
[2023-05-22 04:38] LABS: ANION GAP 10 mmol/L (4-13); POTASSIUM 6.7 mmol/L (3.5-5.1)
[2023-05-22 04:46] LABS: INR 0.91 (0.83-1.09); PROTHROMBIN TIME (PATIENT) 10.6 SEC (9.7-13.0)
[2023-05-22 05:13] LABS: BASO % 0.9 % (0-2.0); EOS % 4.2 % (0-4.5); HEMOGLOBIN 14.4 GM/dL (10.7-15.3); LYMPH % 29.6 % (8-40); MCH 30.7 pg (25.7-33.7); MCHC 32.7 g/dl (32.0-36.0); MEAN CELL VOLUME 93.8 fl (80-96); MEAN PLT VOLUME 8.3 fl (7.5-11.1); MONO % 11.7 % (3.8-10.2); NEUT % 53.6 % (42.8-82.8); PLATELET COUNT 196 10^3/uL (134-434); RBC 4.69 M/mm3 (3.60-5.2); RDW 17.8 % (11.6-15.6); WHITE BLOOD COUNT 4.6 K/mm3 (4.0-10.0)
[2023-05-22 05:28] LABS: POTASSIUM 5.5 mmol/L (3.5-5.1)
[2023-05-22 05:30] LABS: CALCIUM 9.1 mg/dL (8.5-10.1)
[2023-05-22 05:31] LABS: BLOOD UREA NITROGEN 67.9 mg/dL (7-18)
[2023-05-22 05:34] LABS: CREATININE 4.5 mg/dL (0.55-1.3)
[2023-05-22] MEDS ORDERED: ACETAMINOPHEN 325 MG TABLET (FP) PO PRN (07:50)
[2023-05-22] MEDS ORDERED: SODIUM CHLORIDE 250 ML IV PRN (09:32)
[2023-05-22] MEDS ORDERED: FUROSEMIDE 40 MG TABLET (FP) ONE (10:31)
[2023-05-22] MEDS ORDERED: ASPIRIN COATED 81 MG TABLET.EC ONE (10:31)
[2023-05-22] MEDS ORDERED: amLODIPine BESYLATE 10 MG TABLET (FP) ONE (10:32)
[2023-05-22] MEDS ORDERED: SERTRALINE HCL 50 MG TABLET (FP) ONE (10:32)
[2023-05-22] MEDS ORDERED: CARVEDILOL 25 MG TABLET (FP) ONE (10:32)
[2023-05-22] MEDS: CARVEDILOL 25 MG TABLET (FP) PO SCH (10:36)
[2023-05-22] MEDS: amLODIPine BESYLATE 10 MG TABLET (FP) PO SCH (10:36)
[2023-05-22] MEDS: ASPIRIN COATED 81 MG TABLET.EC PO SCH (10:36)
[2023-05-22] MEDS: SERTRALINE HCL 50 MG TABLET (FP) PO SCH (10:36)
[2023-05-22] MEDS: FUROSEMIDE 40 MG TABLET (FP) PO SCH (10:36)
[2023-05-22] MEDS: INSULIN ASPART SLIDING SCALE (NOVOLOG) 1 VIAL SQ SCH (16:13)
[2023-05-22] MEDS: hydrALAZINE HCL 25 MG TABLET (FP) PO SCH (16:54)
[2023-05-22] MEDS: GABAPENTIN 100 MG CAPSULE PO SCH ×2 (16:55→21:32)
[2023-05-22] MEDS: HEPARIN NA (PORCINE) 5,000 UNITS/ML 1ML VIAL SQ SCH (16:55)
[2023-05-22] MEDS ORDERED: ATORVASTATIN CA 20 MG TABLET (FP) ONE (21:22)
[2023-05-22] MEDS ORDERED: INSULIN (NOVOLOG) ASPART 100 UNITS/ML 10ML VIAL ONE (21:28)
[2023-05-22] MEDS: ATORVASTATIN CA 40 MG TABLET (FP) PO SCH (21:34)
[2023-05-23 07:24] LABS: HEMATOCRIT 33.1 % (32.4-45.2); HEMOGLOBIN 10.9 GM/dL (10.7-15.3); MCH 30.6 pg (25.7-33.7); MEAN CELL VOLUME 92.6 fl (80-96); PLATELET COUNT 140 10^3/uL (134-434); RBC 3.57 M/mm3 (3.60-5.2); RDW 17.3 % (11.6-15.6); WHITE BLOOD COUNT 3.7 K/mm3 (4.0-10.0)
[2023-05-23 07:42] LABS: POTASSIUM 4.2 mmol/L (3.5-5.1)
[2023-05-23 07:54] LABS: CALCIUM 8.7 mg/dL (8.5-10.1)
[2023-05-23 07:55] LABS: BLOOD UREA NITROGEN 58.1 mg/dL (7-18); MAGNESIUM 2.1 mg/dL (1.8-2.4)
[2023-05-23 07:58] LABS: CREATININE 3.8 mg/dL (0.55-1.3); PHOSPHOROUS 4.3 mg/dL (2.5-4.9)
[2023-05-23 08:00] LABS: BILIRUBIN,TOTAL 0.5 mg/dL (0.2-1)
[2023-05-23 08:27] LABS: ALBUMIN 2.8 g/dl (3.4-5.0); TOT PROT 5.6 g/dl (6.4-8.2)
[2023-05-23 16:11] VITALS: BP 110/77; PULSE 61; RESP 16; TEMP 97.9
== END 2023-05-23 16:01 | disposition home or self-care (01) | DRG 312 ==
LOC: JER 01:06 → JERBED 08:49 → J4W 11:37 → OBSVTOIN 05-23 10:37
PROVIDERS: ADMIT Internal Medicine; ATTEND Internal Medicine
DX: R55 Syncope and collapse (principal); N18.6 End stage renal disease; I13.2 Hypertensive heart and chronic kidney disease with heart failure and with stage 5 chronic kidney disease, or end stage renal disease; I50.9 Heart failure, unspecified; F32.A Depression, unspecified; Z99.2 Dependence on renal dialysis; F03.90 Unspecified dementia, unspecified severity, without behavioral disturbance, psychotic disturbance, mood disturbance, and anxiety; J44.9 Chronic obstructive pulmonary disease, unspecified; E11.22 Type 2 diabetes mellitus with diabetic chronic kidney disease; E78.5 Hyperlipidemia, unspecified; I49.5 Sick sinus syndrome; E78.00 Pure hypercholesterolemia, unspecified; I44.7 Left bundle-branch block, unspecified; E87.5 Hyperkalemia
CPT/HCPCS: 36415; 70450-TC; 71046-TC-FY; 72100-TC-FY; 72125-TC; 72170-TC-FY; 73030-TC-RT-FY; 73502-TC-RT-FY; 73562-TC-RT-FY; 73590-TC-RT-FY; 80048; 80053; 82962; 83735; 84100; 84484; 85025; 85027; 85610; 85730; 86803; 87340; 93005; 93010; 97116-GP; 97161-GP; 99285-25; G0378; J1644

== ENCOUNTER → 2023-05-28 | Day surgery (SDC) | payer OTHER ==
[~2023-05-28] MED LIST changes: +BUPIVACAINE HCL/PF 0.75% 10 ML VIAL ONE; +LIDOCAINE HCL/PF 1% SDV 5ML VIAL ONE
== END | disposition home or self-care (01) ==
LOC: JASU-SURG 04:11
PROVIDERS: ATTEND Pain Medicine Pain Medicine
DX: Z53.8 Procedure and treatment not carried out for other reasons (principal)

== ENCOUNTER 2023-06-18 04:04 | Day surgery (SDC) | payer OTHER ==
[2023-06-13 08:57] VITALS: BMI 27.3
[2023-06-18] MEDS ORDERED: BUPIVACAINE HCL/PF 0.75% 10 ML VIAL ONE ×2 (07:20→12:10)
[2023-06-18] MEDS ORDERED: LIDOCAINE HCL/PF 1% SDV 5ML VIAL ONE ×2 (07:20→07:21)
[2023-06-18] MEDS ORDERED: ACETAMINOPHEN 500 MG TABLET (FP) PO PRN (12:16)
[2023-06-18] MEDS: LIDOCAINE 1% P/F 10 MG/ML VIAL INF ONE (12:27)
[2023-06-18] MEDS: BUPIVACAINE HCL/PF 0.75% 10 ML VIAL PNB ONE ×2 (12:27→12:31)
[2023-06-18 13:18] VITALS: BP 171/82; PULSE 65; RESP 18; TEMP 98.9
== END 2023-06-18 13:21 | disposition home or self-care (01) ==
LOC: JASU-SURG 04:04
PROVIDERS: ATTEND Pain Medicine Pain Medicine
PROC: 3E0T33Z Introduction of Anti-inflammatory into Peripheral Nerves and Plexi, Percutaneous Approach (ICD-10-PCS; 2023-06-18)
PROC: 3E0T3BZ Introduction of Anesthetic Agent into Peripheral Nerves and Plexi, Percutaneous Approach (ICD-10-PCS; principal; 2023-06-18 10:45)
DX: M47.816 Spondylosis without myelopathy or radiculopathy, lumbar region (principal)
CPT/HCPCS: 76000-TC-FY

== ENCOUNTER 2023-07-30 04:22 | Day surgery (SDC) | payer OTHER ==
[2023-07-24 11:18] VITALS: BMI 27.3
[2023-07-30] MEDS ORDERED: BUPIVACAINE HCL/PF 0.75% 10 ML VIAL ONE (07:27)
[2023-07-30] MEDS ORDERED: DEXAMETHASONE SOD PHOSPHATE 10 MG/1 ML VIAL ONE (07:27)
[2023-07-30] MEDS ORDERED: LIDOCAINE HCL/PF 1% SDV 5ML VIAL ONE (07:27)
[2023-07-30] MEDS ORDERED: LIDOCAINE HCL/PF 2% SDV 5ML VIAL ONE (07:32)
[2023-07-30] MEDS: BUPIVACAINE HCL/PF 0.75% 10 ML VIAL NR ONE ×2 (13:06)
[2023-07-30] MEDS: DEXAMETHASONE SOD PHOSPHATE 10 MG/1 ML VIAL IVPUSH ONE ×2 (13:06)
[2023-07-30] MEDS: LIDOCAINE HCL/PF 2% SDV 5ML VIAL INF ONE ×2 (13:06)
[2023-07-30] MEDS: LIDOCAINE HCL 1% PRESERVATIVE FREE - 30ML VIAL IJ ONE ×2 (13:06)
[2023-07-30 13:41] VITALS: BP 174/82; PULSE 63; RESP 20; TEMP 97.6
[2023-07-30] MEDS ORDERED: ACETAMINOPHEN 500 MG TABLET (FP) PO PRN (15:06)
== END 2023-07-30 14:12 | disposition home or self-care (01) ==
LOC: JASU-SURG 04:22
PROVIDERS: ATTEND Pain Medicine Pain Medicine
PROC: 015B3ZZ Destruction of Lumbar Nerve, Percutaneous Approach (ICD-10-PCS; principal; 2023-07-30 12:15)
DX: M47.816 Spondylosis without myelopathy or radiculopathy, lumbar region (principal)
CPT/HCPCS: 76000-TC-FY; J1100

== ENCOUNTER 2023-08-27 04:01 | Day surgery (SDC) | payer OTHER ==
[2023-08-22 11:46] VITALS: BMI 27.2
[2023-08-27] MEDS ORDERED: LIDOCAINE HCL/PF 2% SDV 5ML VIAL ONE (07:27)
[2023-08-27] MEDS ORDERED: DEXAMETHASONE SOD PHOSPHATE 10 MG/1 ML VIAL ONE (07:28)
[2023-08-27] MEDS ORDERED: LIDOCAINE HCL/PF 1% SDV 5ML VIAL ONE (07:28)
[2023-08-27] MEDS ORDERED: BUPIVACAINE HCL/PF 0.75% 10 ML VIAL ONE (07:28)
[2023-08-27 09:24] VITALS: RESP 18
[2023-08-27] MEDS: LIDOCAINE HCL 1% PRESERVATIVE FREE - 30ML VIAL IJ ONE (10:29)
[2023-08-27] MEDS: BUPIVACAINE HCL/PF 0.75% 10 ML VIAL MM ONE (10:47)
[2023-08-27] MEDS: LIDOCAINE HCL 2% (50ML VIAL) INF ONE (10:47)
[2023-08-27 12:08] VITALS: BP 156/66; PULSE 72; TEMP 98.2
[2023-08-27] MEDS ORDERED: ACETAMINOPHEN 500 MG TABLET (FP) PO PRN (14:10)
== END 2023-08-27 12:00 | disposition home or self-care (01) ==
LOC: JASU-SURG 04:01
PROVIDERS: ATTEND Pain Medicine Pain Medicine
PROC: 015B3ZZ Destruction of Lumbar Nerve, Percutaneous Approach (ICD-10-PCS; principal; 2023-08-27 10:15)
DX: M47.896 Other spondylosis, lumbar region (principal)
CPT/HCPCS: 76000-TC-FY; J1100

== ENCOUNTER 2023-10-02 12:23 | Emergency (ER) | payer OTHER ==
[2023-10-02 12:49] VITALS: BP 148/67; PULSE 65; RESP 18; TEMP 98.4; BMI 25.8
[2023-10-02] MEDS: LIDOCAINE 5% TOPICAL PATCH TP ONE (15:30)
[2023-10-02] MEDS: ACETAMINOPHEN 1000 MG/100 ML BAG IVPB ONE (15:30)
[2023-10-02] MEDS ORDERED: LIDOCAINE 4% PATCH TP ONE (15:33)
[2023-10-02] MEDS ORDERED: ACETAMINOPHEN INJECTION 100 ML IVPB ONE (15:33)
[2023-10-02 16:10] LABS: BASO % 1.1 % (0-2.0); EOS % 4.6 % (0-4.5); HEMATOCRIT 33.3 % (32.4-45.2); HEMOGLOBIN 10.9 GM/dL (10.7-15.3); LYMPH % 30.5 % (8-40); MCH 29.8 pg (25.7-33.7); MCHC 32.6 g/dl (32.0-36.0); MEAN CELL VOLUME 91.5 fl (80-96); MEAN PLT VOLUME 7.6 fl (7.5-11.1); MONO % 16.8 % (3.8-10.2); PLATELET COUNT 176 10^3/uL (134-434); RBC 3.64 M/mm3 (3.60-5.2); RDW 16.3 % (11.6-15.6); WHITE BLOOD COUNT 3.1 K/mm3 (4.0-10.0)
[2023-10-02 16:56] LABS: POTASSIUM 3.8 mmol/L (3.5-5.1)
[2023-10-02 16:59] LABS: ALBUMIN 3.4 g/dl (3.4-5.0); CALCIUM 9.5 mg/dL (8.5-10.1); MAGNESIUM 2.2 mg/dL (1.8-2.4)
[2023-10-02 17:02] LABS: CREATININE 3.6 mg/dL (0.55-1.3); PHOSPHOROUS 4.1 mg/dL (2.5-4.9)
[2023-10-02 17:03] LABS: BILIRUBIN,TOTAL 0.5 mg/dL (0.2-1); TOT PROT 6.5 g/dl (6.4-8.2)
[2023-10-02] MEDS ORDERED: LIDOCAINE PATCH REMOVAL MC ONE (22:00)
== END 2023-10-02 19:09 | disposition home or self-care (01) ==
LOC: JER 12:23
PROC: 3E033NZ Introduction of Analgesics, Hypnotics, Sedatives into Peripheral Vein, Percutaneous Approach (ICD-10-PCS; principal; 2023-10-02)
DX: M54.50 Low back pain, unspecified (principal)
CPT/HCPCS: 36415; 73502-TC-RT-FY; 80053; 83735; 84100; 85025; 93005; 93010; 99285-25; J0131